=== PATIENT | male | born 1975 | race Caucasian/White ===

== ENCOUNTER 2018-08-30 08:40 | Observation (INO) | payer OTHER ==
[2018-08-29 10:22] LABS: BASOPHILS # (AUTO) 0.1 (0.0-0.1); BASOPHILS % 0.7 % (0.0-1.0); EOSINOPHILS # (AUTO) 0.2 (0.0-0.4); EOSINOPHILS % 2.1 % (0.0-6.0); HEMATOCRIT 49.6 % (38.2-49.6); HEMOGLOBIN 17.4 g/dL (14.0-18.0); LYMPHOCYTES # (AUTO) 3.4 (1.0-3.2); LYMPHOCYTES % 37.7 % (18.0-39.1); MEAN CORPUSCULAR HEMOGLOBIN 32.8 pg (28-32); MEAN CORPUSCULAR HGB CONC 35.1 g/dL (31-35); MEAN CORPUSCULAR VOLUME 93.6 fL (81-99); MONOCYTES # (AUTO) 0.7 (0.2-0.8); MONOCYTES % 7.7 % (4.4-11.3); NEUTROPHILS # (AUTO) 4.6 (2.1-6.9); NEUTROPHILS % 51.4 % (38.7-80.0); PLATELET COUNT 148 x10e3/uL (140-360); RED CELL DISTRIBUTION WIDTH 12.3 % (11.7-14.4)
[2018-08-29 10:58] LABS: ALANINE AMINOTRANSFERASE 41 IU/L (0-55); ALBUMIN/GLOBULIN RATIO 1.3 (0.8-2.0); ALKALINE PHOSPHATASE 65 IU/L (40-150); ANION GAP 13.5 mmol/L (8-16); BLOOD UREA NITROGEN 10 mg/dL (7-26); BUN/CREATININE RATIO 10 (6-25); CALCIUM 9.8 mg/dL (8.4-10.2); CARBON DIOXIDE 27 mmol/L (22-29); CHLORIDE 102 mmol/L (98-107); CHOL/HDL RATIO 6.1 (3.9-4.7); CHOLESTEROL 147 MD/DL (0-199); CREATININE, SERUM 1.04 mg/dL (0.72-1.25); EST GLOMERULAR FILTRATION RATE > 60 ML/MIN (60-); GLUCOSE 309 mg/dL (74-118); HDL CHOLESTEROL 24 MG/DL (40-60); POTASSIUM 4.5 mmol/L (3.5-5.1); SODIUM 138 mmol/L (136-145)
[2018-08-29 11:21] LABS: LDL CHOLESTEROL 81 MG/DL (60-130); TRIGLYCERIDES 212 MG/DL (0-149)
[2018-08-30] VITALS (12 sets, daily range): BP systolic 123–145; BP diastolic 65–91
[~2018-08-30] VITALS: Ht 177.8 cm; Wt 124.7 kg
--- NOTE | 2018-08-30 09:15 | NUR ---
Received pt Radiology holding area #5. Identifierx2 [facility] possible fix Dr Morales. PEERLA Resp shallow and regular 95%Ra.Bilateral femoral shaved and rt wrist. Bruce test positive.Pre procedural meds given with medication reconciliation done. Denies CP or SOB at this time PP x4 Pt/DP. Iv started left ac #20x1 no s/s infiltration flushed NS 1000ns at bedside.
[2018-08-30] MEDS ORDERED: SODIUM CHLORIDE 0.9% 1000ML 1,000 ML ONE (09:47)
[2018-08-30] MEDS ORDERED: ALPRAZOLAM 0.5 MG TAB ONE (09:47)
[2018-08-30] MEDS ORDERED: DIPHENHYDRAMINE HCL 25 MG CAP ONE (09:47)
[2018-08-30] MEDS ORDERED: ATORVASTATIN CA20 MG PO (10:21)
[2018-08-30] MEDS ORDERED: METOPROLOL SUCC50 MG PO (10:21)
[2018-08-30] MEDS ORDERED: RANOLAZINE 1000 MG (10:21)
[2018-08-30] MEDS ORDERED: CLOPIDOGREL75 MG PO (10:21)
[2018-08-30] MEDS ORDERED: ISOSORBIDE 60 MG (10:21)
[2018-08-30] MEDS ORDERED: LANSOPRAZOLE 15 MG (10:24)
[2018-08-30] MEDS ORDERED: MIDAZOLAM HCL 2 MG/2 ML VIAL ONE ×2 (11:00→11:57)
[2018-08-30] MEDS ORDERED: FENTANYL CITRATE/PF 100MCG/2 ML INJ ONE (11:00)
[2018-08-30] MEDS ORDERED: LIDOCAINE HCL 2% LOCAL 20 ML VIAL ONE (11:01)
[2018-08-30] MEDS ORDERED: IOPAMIDOL 370 MG/ML 200 ML INFUS..BTL INJ ONE ×2 (11:01→11:36)
[2018-08-30] MEDS ORDERED: HEPARIN SOD/SOD CHLORIDE 2,000 ML ONE (11:01)
[2018-08-30] MEDS ORDERED: VERAPAMIL HCL 2.5 MG/ML 2 ML VIAL ONE (11:01)
[2018-08-30] MEDS ORDERED: NITROGLYCERIN/D5W 200 MCG/ML 250 ML ONE (11:01)
[2018-08-30] MEDS ORDERED: ATROPINE SULFATE 0.1 MG/ML 10ML SYR ONE (11:43)
[2018-08-30] MEDS ORDERED: EPTIFIBATIDE 10 ML ONE (11:44)
[2018-08-30] MEDS ORDERED: TICAGRELOR 90 MG TABLET ONE (11:57)
[2018-08-30] MEDS ORDERED: ASPIRIN 325 MG TAB ONE (11:59)
--- NOTE | 2018-08-30 12:15 | NUR ---
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 Received report Fatuma RN labeling machine operator nurse. [facility] Dr Carmen vance CSi fix with rt radial approach Site with intact TR band Radial pulse adequate. Left ac iv 800cc at 75hr no s/s infiltration. Pt states has discomfort but drifts quickly to sleep Recieved orders for tele obs bed.Ox3 Family in waiting Abd soft and denies necessity to defecate or urinate PPx4 present. TR band w/o bleeding and intact titration due at 3pm
--- NOTE | 2018-08-30 14:00 | NUR ---
Titration held till 1500pm. 1500pm removed -3cc (12cc balloon)positive 9cc balance No bleeding radial pulse adequate 99%sat 1515 Tr band titration continued -3cc positive 6cc no bleed,pulse adequate 99% sat 1530 TR band titration continued -3cc positive 3cc no bleed,pulse adequate 99% sat 1600 TR band titration completed no bleeding, radial pulse adequate ,sats 99% dressing applied and reapplied rt tr band site splint for pt reminder, 1630 DC home per wc vs and trband and iv site stable. 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
--- NOTE | 2018-08-30 15:15 | Operative Report ---
DATE OF PROCEDURE: August 30, 2018 INDICATIONS: Coronary artery disease and abnormal stress test PROCEDURES PERFORMED: 1. Left heart catheterization, selective coronary angiography. 2. Atherectomy and drug eluting stent placement to the proximal right coronary artery. 3. Deployment of right wrist transradial band. COMPLICATIONS: None. RECOMMENDATIONS: Dual antiplatelet therapy for life. PROCEDURE: Access was obtained in the right radial artery. Using ultrasound guidance, a 5-Irish sheath was placed. Diagnostic coronary angiogram revealed patent left main, left anterior descending artery stent, 50% to 60% proximal stenosis, mid 50% stenosis in the region of the diagonal artery which was jailed within the existing stent. Circumflex had moderate 30% to 50% stenosis, proximal right coronary artery 80% stenosis. Stent in the right posterior descending artery was widely patent. LV end-diastolic pressure of 14. No gradient across the aortic valve on pullback. Decision was made to intervene on the right coronary artery. The patient received 12,000 units of intravenous heparin along with Integrilin bolus and oral Brilinta and aspirin for anticoagulation. The right coronary artery was cannulated using a 6-Irish JR4 Guidant catheter. A ViperWire was advanced across the lesion. Orbital atherectomy was performed and subsequently a 3-mm balloon was used to pre-dilate. A 4 x 20 mm Resolute Tung stent was deployed. Post dilated with a 5 mm balloon and normal atmospheres. Excellent end result, less than 10% distal stenosis. ALEJANDRINA III flow. No complications. Guidant sheath was removed and TR band applied. The patient discharged home the same day. Job#: [id number]
--- NOTE | 2018-08-30 16:30 | NUR ---
TR band titration is completed no s/s hematoma or oozing coban with sterile 2x2,tegederm and coban. Splint in place. Positive radial thrill.Iv is removed with 2x2 gauze and tegederm. NO s/s infilration. 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 Has copies of POC, To private care per wc no co stable vs and ekg Denies CP or SOB
== END 2018-08-30 16:30 | disposition home or self-care (01) ==
LOC: CATH LAB 08:40 → PACU V 12:46 → CATH LAB V 12:46 → UNDOADMOB 12:46
PROVIDERS: ADMIT Internal Medicine Interventional Cardiology; ATTEND Internal Medicine Interventional Cardiology
DX: I25.10 Atherosclerotic heart disease of native coronary artery without angina pectoris (principal); Z88.5 Allergy status to narcotic agent; I73.9 Peripheral vascular disease, unspecified; R94.39 Abnormal result of other cardiovascular function study; I10 Essential (primary) hypertension; Z01.812 Encounter for preprocedural laboratory examination
CPT/HCPCS: 36415; 80053; 80061; 85025; 92933; 93458; C1725; C1874; G0378; J1327; J2001; J2250; J7030; Q9967; C1724; C1887

== ENCOUNTER 2019-03-13 21:41 | Observation (INO) | payer OTHER ==
[~2019-03-13] VITALS: Ht 177.8 cm; Wt 120.4 kg
[~2019-03-13 21:41] MED LIST: ATORVASTATIN CA20 MG PO; CLOPIDOGREL75 MG PO; ISOSORBIDE 60 MG PO; LANSOPRAZOLE 15 MG; METOPROLOL SUCC50 MG PO; RANOLAZINE 1000 MG PO
--- OUTSIDE RECORDS SUMMARY | 2019-03-13 21:44 | XMS REPORT | Continuity of Care Document ---
Author Author [employer] Address Unknown Phone Unavailable Care Team Providers Care [employer] Pilot Name Role Phone [employer] Unavailable Unavailable Problems Problem Status Onset Date Classification Date Reported Comments Source Mild persistent asthmatic bronchitis without complication Active Diagnosis 09/01/2017 [facility] Esophageal reflux Active Problem 09/29/2017 [facility] Hospital discharge follow-up Active Diagnosis 09/01/2017 [facility] Pleurisy Active Diagnosis 09/01/2017 [facility] History of coronary artery stent placement Active Problem 09/29/2017 [facility] Hyperlipidemia, unspecified hyperlipidemia type Active Problem 09/29/2017 [facility] BMI 45.0-49.9, adult Active Problem 09/29/2017 [facility] Essential hypertension Active Problem 09/29/2017 [facility] Coronary atherosclerosis Active Problem 09/29/2017 [facility] Current smoker Active Problem 09/29/2017 [facility] Morbid obesity Active Problem 09/29/2017 [facility] Hematoma Active Diagnosis 09/21/2017 [facility] Hyperglycemia Active Problem 09/29/2017 [facility] Abnormal CXR Active Diagnosis 09/16/2017 [facility] Rib pain on left side Active Diagnosis 09/21/2017 [facility] Chest wall pain Active Diagnosis 09/21/2017 [facility] Acute gastritis without hemorrhage, unspecified gastritis type Active Diagnosis 09/16/2017 [facility] Bronchitis Active Diagnosis 08/19/2017 [facility] Other and unspecified hyperlipidemia Active Diagnosis 08/19/2017 [facility] Elevated glucose Active Diagnosis 09/02/2017 [facility] Encounter to discuss test results Active Diagnosis 09/21/2017 [facility] GERD Active Problem 11/24/2013 [facility] Hyperlipidemia Active Problem 11/24/2013 [facility] Hypertension Active Problem 11/24/2013 [facility] CAD Active Problem 11/24/2013 [facility] Nicotine abuse Active Diagnosis 11/24/2013 [facility] Morbid obesity Active Problem 11/24/2013 [facility] History of heart artery stent Active Problem 11/24/2013 [facility] Tendinitis of right elbow Active Diagnosis 10/21/2013 [facility] Acute bacterial sinusitis Active Diagnosis 11/24/2013 [facility] Routine general medical examination at a health care facility Active Diagnosis 10/21/2016 [facility] Medications Medication Details Route Status Patient Instructions Ordering Provider Order Date Source Ultram 1 tablet as needed Orally Active 50 mg Orally every 6 hrs Ghebranious 09/08/2017 [facility] Carafate 1 tablet on an empty stomach Orally Active 1 GM Orally four times a day (qid) as needed (prn) Ghebranious 09/08/2017 [facility] Albuterol Sulfate 3 ml Inhalation Active (2.5 MG/3ML) 0.083% Inhalation Three times a day PRN Ghebranious 08/30/2017 [facility] PredniSONE 1 tablet Orally Active 10 mg Orally Once a day Talha 08/30/2017 [facility] Naproxen 1 tablet as needed Orally Active 500 mg Orally twice a day Ghebranious 08/30/2017 [facility] ProAir HFA 2 puffs as needed Inhalation Active 108 (90 Base) MCG/ACT Inhalation every 4 hrs Ghebranious 08/17/2017 [facility] Tessalon Perles 1 capsule as needed Orally Active 100 mg Orally Three times a day [place] 08/17/2017 [facility] Ceftin 1 tablet Orally Active 250 MG Orally Twice a day [place] 08/17/2017 [facility] Levaquin 1 tablet Orally Active 500 mg Orally Once a day [place] 11/08/2013 [facility] Lipitor 1 tablet Orally Active 40 mg Orally Once a day [place] 11/03/2013 [facility] Flonase 2 spray in each nostril Nasally Active 50 MCG/ACT Nasally Once a day [facility] 10/26/2013 [facility] Augmentin 1 tablet Orally Active 500-125 MG Orally Twice a day [place] 10/26/2013 [facility] Flonase 2 spray in each nostril Nasally Active 50 MCG/ACT Nasally Once a day [place] 10/26/2013 [facility] Naproxen 1 tablet as needed Orally Active 500 mg Orally every 12 hrs [place] 10/19/2013 [facility] Aspir-81 1 tablet Orally Active 81 MG Orally Once a day [place] 10/19/2013 [facility] Pravastatin Sodium 1 tablet Orally Active 40 MG Orally Once a day [facility] Ranexa 1 tablet Orally Active 1000 MG Orally Twice a day [facility] Naproxen TAKE 1 TABLET EVERY 12 HOURS NEEDED. NA Active 500 MG [facility] Clopidogrel Bisulfate 1 tablet Orally Active 75 MG Orally Once a day [facility] Isosorbide Dinitrate 1 tablet Orally Active 30 mg Orally twice a day (bid) Talha [facility] Atorvastatin Calcium 1 tablet Orally Active 40 MG Orally Once a day [facility] Aspir-81 1 tablet Orally Active 81 MG Orally Once a day [facility] Amlodipine Besylate 1 tablet Orally Active 5 MG Orally Once a day [facility] Furosemide 1 tablet Orally Active 40 MG Orally Once a day [facility] Metoprolol Succinate not defined Orally Active 50 MG Orally [facility] Lisinopril 1 tablet Orally Active 20 MG Orally Once a day [facility] Prevacid 1 capsule before a meal Orally Active 15 MG Orally Once a day [facility] Isosorbide Dinitrate 1 tablet Orally Active 30 mg Orally twice a day (bid) [facility] Pravastatin Sodium 1 tablet Orally Active 40 MG Orally [facility] a day [facility] Bystolic 1 tablet Orally Active 10 mg Orally Once a day [facility] Isosorbide Mononitrate 1 tablet Orally Active 60 MG Orally Once a day [facility] Prevacid 1 capsule before a meal Orally Active 30 MG Orally Once a day [facility] Furosemide 1 tablet Orally Active 40 MG Orally Once a day [facility] Clopidogrel Bisulfate 1 tablet Orally Active 75 MG Orally Once a day [facility] Aspir-81 1 tablet Orally Active 81 MG Orally Once a day [facility] Naproxen TAKE 1 TABLET EVERY 12 HOURS NEEDED. NA Active 500 MG [facility] Isosorbide Mononitrate 1 tablet Orally Active 60 MG Orally Once a day [facility] Lisinopril 1 tablet Orally Active 20 MG Orally Once a day [facility] Isosorbide Dinitrate 1 tablet Orally Active 30 MG Orally Once a day [facility] Atorvastatin Calcium 1 tablet Orally Active 40 MG Orally Once a day [facility] Amlodipine Besylate 1 tablet Orally Active 5 MG Orally Once a day [facility] Prevacid 1 capsule before a meal Orally Active 15 MG Orally Once a day [facility] Metoprolol Succinate Unknown Orally Active 50 MG Orally [facility] Atorvastatin Calcium 20 Mg Tablet Bedtime for Cholesterol Active [facility] Clopidogrel Bisulfate (Clopidogrel) 75 Mg Tablet Daily for Blood Thinner Active [facility] Isosorbide 60MG Daily for Vasodilator Active [facility] Lansoprazole 15MG Active [facility] Metoprolol Succinate 50 Mg Tab.er.24h Daily for Bp Control Active [facility] [id number] Twice A Day for Prevent Cp Active [facility] Allergies, Adverse Reactions, Alerts Substance Category Reaction Severity Reaction type Status Date Reported Comments Source Codeine Sulfate Adverse Reaction nausea Adverse Reaction Active 09/15/2017 [facility] Codeine Unknown Allergy to Substance Active 08/29/2018 [facility] Immunizations No Data Provided for This Section Results Order Name Results Value Reference Range Date Interpretation Comments Source Blood leukocytes automated count (number/volume) 8.97 4.8 - 10.8 08/29/2018 [facility] Blood erythrocytes automated count (number/volume) 5.30 4.3 - 5.7 08/29/2018 [facility] Blood hemoglobin measurement (moles/volume) 17.4 14.0 - 18.0 08/29/2018 [facility] Automated blood hematocrit (volume fraction) 49.6 38.2 - 49.6 08/29/2018 [facility] Automated erythrocyte mean corpuscular volume 93.6 81 - 99 08/29/2018 [facility] Automated erythrocyte mean corpuscular hemoglobin (mass per erythrocyte) 32.8 28 - 32 08/29/2018 [facility] Automated erythrocyte mean corpuscular hemoglobin concentration measurement (mass/volume) 35.1 31 - 35 08/29/2018 [facility] RDW BldCo-Rto 12.3 11.7 - 14.4 08/29/2018 [facility] Automated blood platelet count (count/volume) 148 140 - 360 08/29/2018 [facility] Automated blood segmented neutrophil count as percentage of total leukocytes 51.4 38.7 - 80.0 08/29/2018 [facility] Automated blood lymphocyte count as percentage ot total leukocytes 37.7 18.0 - 39.1 08/29/2018 [facility] Automated blood monocyte count as percentage of total leukocytes 7.7 4.4 - 11.3 08/29/2018 [facility] Automated blood eosinophil count as percentage of total leukocytes 2.1 0.0 - 6.0 08/29/2018 [facility] Automated blood basophil count as percentage of total leukocytes 0.7 0.0 - 1.0 08/29/2018 [facility] IM GRANULOCYTES % 0.4 0.0 - 1.0 08/29/2018 [facility] Automated blood neutrophil count 4.6 2.1 - 6.9 08/29/2018 [facility] Blood lymphocytes count (number/volume) 3.4 1.0 - 3.2 08/29/2018 [facility] Blood monocytes automated count (number/volume) 0.7 0.2 - 0.8 08/29/2018 [facility] Automated blood eosinophil count 0.2 0.0 - 0.4 08/29/2018 [facility] Automated blood basophil count (count/volume) 0.1 0.0 - 0.1 08/29/2018 [facility] Absolute Immature Granulocyte (auto 0.04 0 - 0.1 08/29/2018 [facility] Serum or plasma sodium measurement (moles/volume) 138 136 - 145 08/29/2018 [facility] Serum or plasma potassium measurement (moles/volume) 4.5 3.5 - 5.1 08/29/2018 [facility] Serum or plasma chloride measurement (moles/volume) 102 98 - 107 08/29/2018 [facility] Serum or plasma carbon dioxide, total measurement (moles/volume) 27 22 - 29 08/29/2018 [facility] Serum or plasma anion gap 13.5 8 - 16 08/29/2018 [facility] Serum or plasma urea nitrogen measurement (mass/volume) 10 7 - 26 08/29/2018 [facility] Serum or plasma creatinine measurement (mass/volume) 1.04 0.72 - 1.25 08/29/2018 [facility] Serum or plasma urea nitrogen/creatinine mass ratio 10 6 - 25 08/29/2018 [facility] Estimated glomerular filtration rate (GFR) determination > 60 60 08/29/2018 [facility] Glucose measurement 309 74 - 118 08/29/2018 [facility] Serum or plasma calcium measurement (mass/volume) 9.8 8.4 - 10.2 08/29/2018 [facility] Serum or plasma total bilirubin measurement (mass/volume) 0.7 0.2 - 1.2 08/29/2018 [facility] Aspartate Amino Transf (AST/SGOT) 18 5 - 34 08/29/2018 [facility] Serum or plasma alanine aminotransferase measurement (enzymatic activity/volume) 41 0 - 55 08/29/2018 [facility] Serum or plasma protein measurement (mass/volume) 7.1 6.5 - 8.1 08/29/2018 [facility] Serum or plasma albumin measurement (mass/volume) 4.0 3.5 - 5.0 08/29/2018 [facility] Plasma globulin measurement (mass/volume) 3.1 2.3 - 3.5 08/29/2018 [facility] Serum or plasma albumin/globulin mass ratio 1.3 0.8 - 2.0 08/29/2018 [facility] Serum or plasma alkaline phosphatase measurement (enzymatic activity/volume) 65 40 - 150 08/29/2018 [facility] Serum or plasma triglyceride measurement (mass/volume) 212 0 - 149 08/29/2018 [facility] Serum or plasma cholesterol measurement (mass/volume) 147 0 - 199 08/29/2018 [facility] Serum or plasma cholesterol in LDL measurement (mass/volume) 81 60 - 130 08/29/2018 [facility] Serum or plasma cholesterol in HDL measurement (mass/volume) 24 40 - 60 08/29/2018 [facility] Serum or plasma total cholesterol/cholesterol in HDL mass ratio 6.1 3.9 - 4.7 08/29/2018 [facility] Pathology Reports No Data Provided for This Section Diagnostic Reports No Data Provided for This Section Consultation Notes No Data Provided for This Section Discharge Summaries No Data Provided for This Section History and Physicals No Data Provided for This Section Vital Signs Vital Sign Value Date Comments Source Weight 314 09/15/2017 [facility] Height 70 09/15/2017 [facility] Heart Rate 88 09/15/2017 [facility] Diastolic (mm Hg) 84 09/15/2017 [facility] Systolic (mm Hg) 136 09/15/2017 [facility] Weight 322 09/08/2017 [facility] Height 70 09/08/2017 [facility] Heart Rate 94 09/08/2017 [facility] Diastolic (mm Hg) 86 09/08/2017 [facility] Systolic (mm Hg) 132 09/08/2017 [facility] Diastolic (mm Hg) 84 08/30/2017 [facility] Systolic (mm Hg) 130 08/30/2017 [facility] Height 70 08/30/2017 [facility] Heart Rate 91 08/30/2017 [facility] Weight 327 08/17/2017 [facility] Height 70 08/17/2017 [facility] Temperature Oral (F) 98.4 F 08/17/2017 [facility] Heart Rate 85 08/17/2017 [facility] Diastolic (mm Hg) 86 08/17/2017 [facility] Systolic (mm Hg) 140 08/17/2017 [facility] Weight 311 10/16/2016 [facility] Height 70 10/16/2016 [facility] Heart Rate 80 10/16/2016 [facility] Diastolic (mm Hg) 96 10/16/2016 [facility] Systolic (mm Hg) 138 10/16/2016 [facility] Weight 303 10/26/2013 [facility] Height 70 10/26/2013 [facility] Temperature Oral (F) 98.0 F 10/26/2013 [facility] Diastolic (mm Hg) 90 10/26/2013 [facility] Systolic (mm Hg) 120 10/26/2013 [facility] Weight 303 10/26/2013 [facility] Height 70 10/26/2013 [facility] Temperature Oral (F) 98.0 F 10/26/2013 [facility] Diastolic (mm Hg) 90 10/26/2013 [facility] Systolic (mm Hg) 120 10/26/2013 [facility] Weight 299 10/19/2013 [facility] Height 70 10/19/2013 [facility] Diastolic (mm Hg) 82 10/19/2013 [facility] Systolic (mm Hg) 128 10/19/2013 [facility] Encounters Location Location Details Encounter Type Encounter Number Reason For Visit Attending Provider ADM Date DC Date Status Source [facility] consult [id number] 10/19/2013 10/19/2013 [facility] consult [id number] 10/19/2013 10/19/2013 [facility] consult [id number] 10/19/2013 10/19/2013 [facility] consult [id number] 10/19/2013 10/19/2013 [facility] consult [id number] 10/19/2013 10/19/2013 [facility] consult [id number] 10/19/2013 10/19/2013 [facility] sinus [id number] 10/26/2013 10/26/2013 [facility] sinus [id number] 10/26/2013 10/26/2013 [facility] test results [id number] 11/03/2013 11/03/2013 [facility] test results [id number] 11/03/2013 11/03/2013 [facility] test results [id number] 11/03/2013 11/03/2013 [facility] test results [id number] 11/03/2013 11/03/2013 [facility] test results [id number] 11/03/2013 11/03/2013 [facility] Unknown [id number] 11/08/2013 11/08/2013 [facility] Unknown [id number] 11/08/2013 11/08/2013 [facility] Unknown [id number] 11/08/2013 11/08/2013 [facility] Unknown [id number] 11/08/2013 11/08/2013 [facility] Unknown [id number] 11/16/2013 11/16/2013 [facility] Unknown [id number] 11/16/2013 11/16/2013 [facility] Unknown [id number] 11/16/2013 11/16/2013 [facility] Physical [id number] 10/16/2016 10/16/2016 [facility] Discharged Inpatient (obs) [id number] EMEKA GAMA MD 08/30/2018 08/30/2018 [facility] Procedures No Data Provided for This Section Assessment and Plan No Data Provided for This Section Plan of Care Plan of Care Date Source Discharge Date 08/30/18 4:30pm Disposition HOME, SELF-CARE Prescriptions See Medication Section 09/09/2018 [facility] Social History Social History Date Source Social History Problem Response Recorded Date/Time Onset Date Status Hx Substance Use Disorder No 08/29/2018 9:55am Not Applicable Not Applicable Hx Alcohol Use No 08/29/2018 9:55am Not Applicable Not Applicable Smoking Status Start Date Stop Date Current every day smoker 09/09/2018 [facility] Social History ElementQualifiersDate Reported Occupation: employed. [employer] Oct 16, 2016 Flu Vaccine: . 07/2016Oct 16, 2016 Fall Risk: . none in the past year Oct 16, 2016 Last Colonoscopy: . never Oct 16, 2016 Last Bone Density: . never Oct 16, 2016 Ethnicity . Status , Is cypriot your primary language? Yes Oct 16, 2016 children . 4 stepchildren Oct 16, 2016 Depression Screening: . negative Oct 16, 2016 Tobacco Use: . Are you a: current smoker, How many packs per day? 1 ppd, How many years have you smoked? 20-30 Oct 16, 2016 Use of recreational / street drugs? . Answer: No Oct 16, 2016 Marital Status: . Lauren Oct 16, 2016 Pneumoccocal Vaccine . Yes Oct 16, 2016 Do you drink alcohol? . Status: No Oct 16, 2016 10/16/2016 [facility] Family History Value Date Source QualifierDescriptionCommentDate Reported Maternal Grandmother Comment not available Oct 16, 2016 Paternal Grandmother Comment not available Oct 16, 2016 Siblings alive healthy Oct 16, 2016 Maternal Grandfather Comment not available Oct 16, 2016 Children Comment not available Oct 16, 2016 Father alive hypertension, heart disease Oct 16, 2016 Paternal Grandfather Comment not available Oct 16, 2016 Mother alive heart disease, hypertension Oct 16, 2016 Other: Comment not available Oct 16, 2016 10/21/2016 [facility] QualifierDescriptionCommentDate Reported Father alive hypertension, heart disease Oct 26, 2013 Mother alive heart disease, hypertension Oct 26, 2013 Siblings alive healthy Oct 26, 2013 11/24/2013 [facility] QualifierDescriptionCommentDate Reported Father alive hypertension, heart disease Oct 19, 2013 Mother alive heart disease, hypertension Oct 19, 2013 Siblings alive healthy Oct 19, 2013 10/21/2013 [facility] Advance Directives Order Name Results Value Date Source Advance Directives Advance Directives Directive Response Recorded Date/Time Does the patient have an advance directive? No 08/29/18 9:11am If yes, is advance directive on file with [facility]? No 08/29/18 9:11am If not on file with [facility] will patient provide a copy? No 08/29/18 9:11am Do you have a Directive to Physician? No 08/29/18 9:11am Do you have a Medical Power of Equipment Operator [employer]? No 08/29/18 9:11am Do you have an out of hospital Do Not Resuscitate Order? No 08/29/18 9:11am Do you have any special needs we should be aware of? No 08/29/18 9:12am Do you have a support person here with you today? Yes 08/29/18 9:12am Did patient receive Notice of Privacy Practices? No 08/29/18 9:12am Did patient receive patient rights and responsibilities? No 08/29/18 9:12am 09/09/2018 [facility] Functional Status No Data Provided for This Section
--- OUTSIDE RECORDS SUMMARY | 2019-03-13 21:44 | XMS REPORT ---
Author Author Emanuel Braden Organization eClinicalWorks Address Unknown Phone Unavailable Care Team Providers Care Firearms Instructor Name Role Phone Emanuel Braden CP Unavailable Allergies, Adverse Reactions, Alerts Substance Reaction Event Type Codeine Sulfate nausea Drug Allergy Problems Problem Type Condition Code Onset Dates Condition Status Assessment Essential hypertension I10 Active Problem Esophageal reflux K21.9 Active Assessment Bronchitis J40 Active Problem History of coronary artery stent placement Z95.5 Active Problem Hyperlipidemia, unspecified hyperlipidemia type E78.5 Active Problem BMI 45.0-49.9, adult Z68.42 Active Problem Essential hypertension I10 Active Problem Coronary atherosclerosis I25.10 Active Problem Current smoker F17.200 Active Problem Morbid obesity E66.01 Active Assessment History of coronary artery stent placement Z95.5 Active Assessment Coronary atherosclerosis I25.10 Active Assessment BMI 45.0-49.9, adult Z68.42 Active Assessment Esophageal reflux K21.9 Active Assessment Current smoker F17.200 Active Assessment Morbid obesity E66.01 Active Assessment Other and unspecified hyperlipidemia E78.5 Active Medications Medication Code System Code Instructions Start Date End Date Status Dosage Clopidogrel Bisulfate ND 53203320728 75 MG Orally Once a day Active 1 tablet Aspir-81 ND 21913589823 81 MG Orally Once a day Active 1 tablet Flonase ND 28742447809 50 MCG/ACT Nasally Once a day Oct 26, 2013 Active 2 spray in each nostril Tessalon Perles ND 87352231592 100 mg Orally Three times a day Aug 17, 2017 Aug 27, 2017 Active 1 capsule as needed Amlodipine Besylate ND 92071932418 5 MG Orally Once a day Active 1 tablet ProAir HFA [facility] 79065067489 108 (90 Base) MCG/ACT Inhalation every 4 hrs Aug 17, 2017 Active 2 puffs as needed Ranexa ND 09914502484 1000 MG Orally Twice a day Active 1 tablet Naproxen ND 00028876398 500 MG Active TAKE 1 TABLET EVERY 12 HOURS NEEDED. Ceftin [facility] 54597224629 250 MG Orally Twice a day Aug 17, 2017 Aug 27, 2017 Active 1 tablet Pravastatin Sodium [facility] 22107314248 40 MG Orally Once a day Active 1 tablet Atorvastatin Calcium [facility] 46941261319 40 MG Orally Once a day Active 1 tablet Isosorbide Dinitrate [facility] [address]-26 30 mg Orally twice a day (bid) Active 1 tablet Metoprolol Succinate ND 0 50 MG Orally Active not defined Prevacid [facility] 29709593227 15 MG Orally Once a day Active 1 capsule before a meal Furosemide [facility] 02389171511 40 MG Orally Once a day Active 1 tablet Lisinopril [facility] 35467060565 20 MG Orally Once a day Active 1 tablet Vital Signs Date/Time: Aug 17, 2017 BMI 46.91 Index Weight 327 lbs Height 70 in Temperature 98.4 F Cardiac Monitoring Heart Rate 85 /min Blood Pressure Diastolic 86 mm Hg Blood Pressure Systolic 140 mm Hg Results Name Result Date Reference Range Unit Abnormality Flag CBC ----Lymphs 1.8 [id number] ----NEUTROPHILS 5.7 [id number] ----MCHC 32.5 [id number] ----MCH 32.6 [id number] ----MCV 100.4 [id number] ----WBC 8.2 57106517 ----Platelets 152 [id number] ----RBC 4.72 [id number] ----Hemoglobin 15.4 [id number] ----Hematocrit 47.4 [id number] Summary Purpose eClinicalWorks Submission
--- OUTSIDE RECORDS SUMMARY | 2019-03-13 21:45 | XMS REPORT ---
Author Author Mariaelena Mccall Organization eClinicalWorks Address Unknown Phone Unavailable Care Team Providers Care Warehouse Supervisor Name Role Phone Mariaelena Mccall CP Unavailable Allergies No Known Allergies Problems Problem Type Condition Code Onset Dates Condition Status Problem Coronary atherosclerosis I25.10 Active Problem Esophageal reflux K21.9 Active Problem BMI 45.0-49.9, adult Z68.42 Active Problem History of coronary artery stent placement Z95.5 Active Problem Hyperglycemia R73.9 Active Problem Morbid obesity E66.01 Active Problem Essential hypertension I10 Active Problem Hyperlipidemia, unspecified hyperlipidemia type E78.5 Active Problem Current smoker F17.200 Active Medications No Known Medications Results No Known Results Summary Purpose eClinicalWorks Submission
--- OUTSIDE RECORDS SUMMARY | 2019-03-13 21:45 | XMS REPORT ---
Author Author Emanuel Braden Organization eClinicalWorks Address Unknown Phone Unavailable Care Team Providers Care Gumming Machine Operator Name Role Phone Emanuel Braden CP Unavailable Allergies No Known Allergies Problems Problem Type Condition Code Onset Dates Condition Status Problem Esophageal reflux K21.9 Active Assessment Elevated glucose R73.09 Active Problem History of coronary artery stent placement Z95.5 Active Problem Hyperlipidemia, unspecified hyperlipidemia type E78.5 Active Problem BMI 45.0-49.9, adult Z68.42 Active Problem Essential hypertension I10 Active Problem Coronary atherosclerosis I25.10 Active Problem Current smoker F17.200 Active Problem Morbid obesity E66.01 Active Medications No Known Medications Results No Known Results Summary Purpose eClinicalWorks Submission
--- OUTSIDE RECORDS SUMMARY | 2019-03-13 21:45 | XMS REPORT ---
Author Author Angelika Palencia [employer]Clinical[employer] Address Unknown Phone Unavailable Care Team Providers Care Collision Center Manager Name Role Phone Angelika Palencia Unavailable Allergies, Adverse Reactions, Alerts Substance Reaction Event Type Codeine Sulfate nausea Drug Allergy Problems Problem Type Condition Code Onset Dates Condition Status Assessment Mild persistent asthmatic bronchitis without complication J45.30 Active Problem Esophageal reflux K21.9 Active Assessment Hospital discharge follow-up Z09 Active Assessment Pleurisy R09.1 Active Problem History of coronary artery stent placement Z95.5 Active Problem Hyperlipidemia, unspecified hyperlipidemia type E78.5 Active Problem BMI 45.0-49.9, adult Z68.42 Active Problem Essential hypertension I10 Active Problem Coronary atherosclerosis I25.10 Active Problem Current smoker F17.200 Active Problem Morbid obesity E66.01 Active Medications Medication Code System Code Instructions Start Date End Date Status Dosage Albuterol Sulfate [facility] 87988344768 (2.5 MG/3ML) 0.083% Inhalation Three times a day PRN Aug 30, 2017 Active 3 ml Pravastatin Sodium [facility] 21532104771 40 MG Orally Once a day Active 1 tablet PredniSONE [facility] 15979831492 10 mg Orally Once a day Aug 30, 2017 Sep 06, 2017 Active 1 tablet Ranexa [facility] 07905225262 1000 MG Orally Twice a day Active 1 tablet Naproxen [facility] 86792921895 500 mg Orally twice a day Aug 30, 2017 Sep 13, 2017 Active 1 tablet as needed Naproxen [facility] 20265176054 500 MG Active TAKE 1 TABLET EVERY 12 HOURS NEEDED. Clopidogrel Bisulfate [facility] 63934501386 75 MG Orally Once a day Active 1 tablet Isosorbide Dinitrate [facility] [address]-82 30 mg Orally twice a day (bid) Active 1 tablet Atorvastatin Calcium [facility] 71553319622 40 MG Orally Once a day Active 1 tablet Aspir-81 [facility] 54134188840 81 MG Orally Once a day Active 1 tablet ProAir HFA [facility] 40121550799 108 (90 Base) MCG/ACT Inhalation every 4 hrs Aug 17, 2017 Active 2 puffs as needed Amlodipine Besylate [facility] 86144352204 5 MG Orally Once a day Active 1 tablet Furosemide [facility] 80143114309 40 MG Orally Once a day Active 1 tablet Metoprolol Succinate NDC 0 50 MG Orally Active not defined Flonase [facility] 65642327532 50 MCG/ACT Nasally Once a day Oct 26, 2013 Active 2 spray in each nostril Lisinopril [facility] 60184700369 20 MG Orally Once a day Active 1 tablet Prevacid [facility] 81898534607 15 MG Orally Once a day Active 1 capsule before a meal Vital Signs Date/Time: Aug 30, 2017 Blood Pressure Diastolic 84 mm Hg Blood Pressure Systolic 130 mm Hg Height 70 in Cardiac Monitoring Heart Rate 91 /min Results No Known Results Summary Purpose eClinicalWorks Submission
--- OUTSIDE RECORDS SUMMARY | 2019-03-13 21:45 | XMS REPORT ---
Author Author Mariaelena Mccall [facility] eClinicalWorks Address Unknown Phone Unavailable Care Team Providers Care Security Operations Center Operator Name Role Phone Mariaelena Mccall CP Unavailable Allergies, Adverse Reactions, Alerts Substance Reaction Event Type Codeine Sulfate nausea Drug Allergy Problems Problem Type Condition Code Onset Dates Condition Status Assessment Rib pain on left side R07.81 Active Problem Coronary atherosclerosis I25.10 Active Problem Esophageal reflux K21.9 Active Problem BMI 45.0-49.9, adult Z68.42 Active Problem History of coronary artery stent placement Z95.5 Active Problem Hyperglycemia R73.9 Active Problem Morbid obesity E66.01 Active Problem Essential hypertension I10 Active Problem Hyperlipidemia, unspecified hyperlipidemia type E78.5 Active Problem Current smoker F17.200 Active Assessment Encounter to discuss test results Z71.89 Active Assessment Hyperglycemia R73.9 Active Assessment Hematoma T14.8XXA Active Assessment Chest wall pain R07.89 Active Medications Medication Code System Code Instructions Start Date End Date Status Dosage Furosemide [facility] 74997825395 40 MG Orally Once a day Active 1 tablet Ultram [facility] 82762768333 50 mg Orally every 6 hrs Sep 08, 2017 Oct 08, 2017 Active 1 tablet as needed Metoprolol Succinate ND 0 50 MG Orally Active not defined Amlodipine Besylate ND 42225057103 5 MG Orally Once a day Active 1 tablet Albuterol Sulfate [facility] 08122782345 (2.5 MG/3ML) 0.083% Inhalation Three times a day PRN Aug 30, 2017 Active 3 ml Prevacid ND 03832202349 15 MG Orally Once a day Active 1 capsule before a meal Ranexa [facility] 61256521067 1000 MG Orally Twice a day Active 1 tablet Isosorbide Dinitrate ND 77703665339 30 mg Orally twice a day (bid) Active 1 tablet Clopidogrel Bisulfate ND 96243184934 75 MG Orally Once a day Active 1 tablet ProAir HFA [facility] 86886947262 108 (90 Base) MCG/ACT Inhalation every 4 hrs Aug 17, 2017 Active 2 puffs as needed Carafate [facility] 03776357653 1 GM Orally four times a day (qid) as needed (prn) Sep 08, 2017 Oct 08, 2017 Active 1 tablet on an empty stomach Atorvastatin Calcium [facility] 25310627350 40 MG Orally Once a day Active 1 tablet Vital Signs Date/Time: Sep 15, 2017 BMI 45.05 Index Weight 314 lbs Height 70 in Cardiac Monitoring Heart Rate 88 /min Blood Pressure Diastolic 84 mm Hg Blood Pressure Systolic 136 mm Hg Results Name Result Date Reference Range Unit Abnormality Flag Ribs Unil 2 View- Left Xray Summary Purpose eClinicalWorks Submission
--- OUTSIDE RECORDS SUMMARY | 2019-03-13 21:45 | XMS REPORT ---
Author Author Mariaelena Mccall [facility] eClinicalWorks Address Unknown Phone Unavailable Care Team Providers Care Community Organization Director Name Role Phone Mariaelena Mccall CP Unavailable Allergies, Adverse Reactions, Alerts Substance Reaction Event Type Codeine Sulfate nausea Drug Allergy Problems Problem Type Condition Code Onset Dates Condition Status Assessment Hematoma T14.8XXA Active Problem Coronary atherosclerosis I25.10 Active Problem Esophageal reflux K21.9 Active Problem BMI 45.0-49.9, adult Z68.42 Active Problem History of coronary artery stent placement Z95.5 Active Problem Hyperglycemia R73.9 Active Problem Morbid obesity E66.01 Active Problem Essential hypertension I10 Active Problem Hyperlipidemia, unspecified hyperlipidemia type E78.5 Active Problem Current smoker F17.200 Active Assessment Abnormal CXR R93.8 Active Assessment Rib pain on left side R07.81 Active Assessment Chest wall pain R07.89 Active Assessment Acute gastritis without hemorrhage, unspecified gastritis type K29.00 Active Medications Medication Code System Code Instructions Start Date End Date Status Dosage Ranexa [facility] 70986361684 1000 MG Orally Twice a day Active 1 tablet Furosemide ND 75729578808 40 MG Orally Once a day Active 1 tablet Lisinopril ND 12181127252 20 MG Orally Once a day Active 1 tablet Isosorbide Dinitrate ND 32341239305 30 mg Orally twice a day (bid) Active 1 tablet Naproxen ND 69078404877 500 mg Orally twice a day Aug 30, 2017 Sep 13, 2017 Inactive 1 tablet as needed Albuterol Sulfate ND 52957513702 (2.5 MG/3ML) 0.083% Inhalation Three times a day PRN Aug 30, 2017 Active 3 ml Prevacid [facility] 14379029968 15 MG Orally Once a day Active 1 capsule before a meal Naproxen ND 10374525612 500 MG Active TAKE 1 TABLET EVERY 12 HOURS NEEDED. Flonase [facility] 50136614446 50 MCG/ACT Nasally Once a day Oct 26, 2013 Active 2 spray in each nostril Metoprolol Succinate ND 0 50 MG Orally Active not defined Ultram [facility] 66681186625 50 mg Orally every 6 hrs Sep 08, 2017 Oct 08, 2017 Active 1 tablet as needed Aspir-81 [facility] 40588802219 81 MG Orally Once a day Inactive 1 tablet Carafate [facility] 75618192053 1 GM Orally four times a day (qid) as needed (prn) Sep 08, 2017 Oct 08, 2017 Active 1 tablet on an empty stomach ProAir HFA [facility] 38515581030 108 (90 Base) MCG/ACT Inhalation every 4 hrs Aug 17, 2017 Active 2 puffs as needed Pravastatin Sodium [facility] 40138992548 40 MG Orally Once a day Active 1 tablet Clopidogrel Bisulfate [facility] 66327569182 75 MG Orally Once a day Active 1 tablet Atorvastatin Calcium [facility] 06863550293 40 MG Orally Once a day Active 1 tablet Amlodipine Besylate [facility] 62639565153 5 MG Orally Once a day Active 1 tablet Vital Signs Date/Time: Sep 08, 2017 BMI 46.20 Index Weight 322 lbs Height 70 in Cardiac Monitoring Heart Rate 94 /min Blood Pressure Diastolic 86 mm Hg Blood Pressure Systolic 132 mm Hg Results No Known Results Summary Purpose eClinicalWorks Submission
--- OUTSIDE RECORDS SUMMARY | 2019-03-13 21:46 | XMS REPORT ---
Author Author Catina Rendon Organization eClinicalWorks Address Unknown Phone Unavailable Care Team Providers Care Global Position System Technician Name Role Phone Catina Rendon CP Unavailable Encounters Encounter Location Date consult [facility] Oct 19, 2013 test results [facility] Nov 03, 2013 Problems Problem Type Condition ICD-9 Code Onset Dates Condition Status Problem GERD (gastroesophageal reflux disease) 530.81 Active Problem Hyperlipidemia 272.4 Active Problem Hypertension 401.9 Active Problem CAD (coronary artery disease) 414.00 Active Problem Nicotine abuse 305.1 Active Problem Morbid obesity 278.01 Active Problem History of heart artery stent V45.82 Active Medications Medication Code System Code Instructions Start Date End Date Status Dosage Lipitor [facility] [address]-40 40 mg Orally Once a day Nov 03, 2013 Active 1 tablet Pravastatin Sodium [facility] [address]-49 40 MG Orally Once a day Inactive 1 tablet Social History Social History Element Qualifiers Date Reported children . none Oct 26, 2013 Tobacco Use: . Are you a: current smoker, How many packs per day? 1 ppd, How many years have you smoked? 20-30 Oct 26, 2013 Marital Status: . Oct 26, 2013 Do you drink alcohol? . Status: No Oct 26, 2013 Occupation: employed. [employer] Oct 26, 2013 Vital Signs Date/Time: Oct 26, 2013 Weight 303 lbs Height 70 inches Temperature 98.0 F Blood Pressure Diastolic 90 mm Hg Blood Pressure Systolic 120 mm Hg Summary Purpose eClinicalWorks Submission
--- OUTSIDE RECORDS SUMMARY | 2019-03-13 21:46 | XMS REPORT ---
Author Author Sujata Montilla [facility] eClinicalWorks Address Unknown Phone Unavailable Care Team Providers Care Employment Law Attorney Name Role Phone Sujata Montilla CP Unavailable Allergies, Adverse Reactions, Alerts Substance Reaction Event Type Codeine Sulfate nausea Drug Allergy Encounters Encounter Location Date Unknown [facility] November 16, 2013 sinus [facility] Oct 26, 2013 Physical [facility] Oct 16, 2016 consult [facility] Oct 19, 2013 test results [facility] Nov 03, 2013 Unknown [facility] Nov 08, 2013 Problems Problem Type Condition ICD-9 Code Onset Dates Condition Status Assessment Routine general medical examination at a health care facility Z00.00 Active Problem Morbid obesity E66.01 Active Problem Coronary atherosclerosis I25.10 Active Problem Current smoker F17.200 Active Problem BMI 40.0-44.9, adult Z68.41 Active Problem History of coronary artery stent placement Z95.5 Active Problem Esophageal reflux K21.9 Active Problem Other and unspecified hyperlipidemia E78.5 Active Problem Hyperlipidemia, unspecified hyperlipidemia type E78.5 Active Problem Essential hypertension I10 Active Assessment Current smoker F17.200 Active Assessment Essential hypertension I10 Active Assessment Hyperlipidemia, unspecified hyperlipidemia type E78.5 Active Assessment Coronary atherosclerosis I25.10 Active Assessment BMI 40.0-44.9, adult Z68.41 Active Assessment History of coronary artery stent placement Z95.5 Active Medications Medication Code System Code Instructions Start Date End Date Status Dosage Furosemide [facility] [address]-78 40 MG Orally Once a day Active 1 tablet Clopidogrel Bisulfate [facility] [address]-03 75 MG Orally Once a day Active 1 tablet Bystolic [facility] [address]-90 10 mg Orally Once a day Active 1 tablet Pravastatin Sodium [facility] [address]-96 40 MG Orally Once a day Active 1 tablet Aspir-81 [facility] [address]-79 81 MG Orally Once a day Active 1 tablet Naproxen [facility] [address]-77 500 MG Active TAKE 1 TABLET EVERY 12 HOURS NEEDED. Isosorbide Mononitrate [facility] [address]-93 60 MG Orally Once a day Active 1 tablet Lipitor [facility] [address]-29 40 mg Orally Once a day Nov 03, 2013 Active 1 tablet Lisinopril [facility] [address]-58 20 MG Orally Once a day Active 1 tablet Isosorbide Dinitrate [facility] [address]-68 30 MG Orally Once a day Active 1 tablet Atorvastatin Calcium [facility] [address]-84 40 MG Orally Once a day Active 1 tablet Amlodipine Besylate [facility] [address]-04 5 MG Orally Once a day Active 1 tablet Prevacid [facility] [address]-78 15 MG Orally Once a day Active 1 capsule before a meal Flonase [facility] [address]-21 50 MCG/ACT Nasally Once a day Oct 26, 2013 Active 2 spray in each nostril Metoprolol Succinate Unknown 0 50 MG Orally Active Unknown Social History Social History Element Qualifiers Date Reported Occupation: employed. [employer] [place] Oct 16, 2016 Flu Vaccine: . 07/2016Oct 16, 2016 Fall Risk: . none in the past year Oct 16, 2016 Last Colonoscopy: . never Oct 16, 2016 Last Bone Density: . never Oct 16, 2016 Ethnicity . Status , Is yi your primary language? Yes Oct 16, 2016 children . 4 stepchildren Oct 16, 2016 Depression Screening: . negative Oct 16, 2016 Tobacco Use: . Are you a: current smoker, How many packs per day? 1 ppd, How many years have you smoked? 20-Oct 16, 2016 Use of recreational / street drugs? . Answer: No Oct 16, 2016 Marital Status: . [place]ne Oct 16, 2016 Pneumoccocal Vaccine . Yes Oct 16, 2016 Do you drink alcohol? . Status: No Oct 16, 2016 Family history Qualifier Description Comment Date Reported Maternal Grandmother Comment not available Oct [...] Other: Comment not available Oct 16, 2016 Vital Signs Date/Time: Oct 16, 2016 Weight 311 lbs Height 70 in Cardiac Monitoring Heart Rate 80 /min Blood Pressure Diastolic 96 mm Hg Blood Pressure Systolic 138 mm Hg Results Chest 2 views- Xray Summary Purpose eClinicalWorks Submission
--- OUTSIDE RECORDS SUMMARY | 2019-03-13 21:46 | XMS REPORT ---
Author Author Catina Rendon [facility] eClinicalWorks Address Unknown Phone Unavailable Care Team Providers Care Structural Technician Name Role Phone aCtina Rendon Unavailable Allergies, Adverse Reactions, Alerts Substance Reaction Event Type Codeine Sulfate nausea Drug Allergy Encounters Encounter Location Date consult [facility] Oct 19, 2013 Problems Problem Type Condition ICD-9 Code Onset Dates Condition Status Assessment Hyperlipidemia 272.4 Active Assessment Hypertension 401.9 Active Assessment GERD (gastroesophageal reflux disease) 530.81 Active Problem GERD (gastroesophageal reflux disease) 530.81 Active Problem Hyperlipidemia 272.4 Active Problem Hypertension 401.9 Active Problem CAD (coronary artery disease) 414.00 Active Problem Nicotine abuse 305.1 Active Problem Morbid obesity 278.01 Active Problem History of heart artery stent V45.82 Active Assessment Tendinitis of right elbow 727.09 Active Assessment CAD (coronary artery disease) 414.00 Active Assessment Morbid obesity 278.01 Active Medications Medication Code System Code Instructions Start Date End Date Status Dosage Bystolic [facility] [address]-07 10 mg Orally Once a day Active 1 tablet Isosorbide Mononitrate [facility] [address]-28 60 MG Orally Once a day Active 1 tablet Prevacid [facility] [address]-57 30 MG Orally Once a day Active 1 capsule before a meal Naproxen [facility] [address]-87 500 mg Orally every 12 hrs Oct 19, 2013 December 18, 2013 Active 1 tablet as needed Aspir-81 [facility] [address]-60 81 MG Orally Once a day Oct 19, 2013 November 18, 2013 Active 1 tablet Pravastatin Sodium [facility] [address]-78 40 MG Orally Once a day Active 1 tablet Social History Social History Element Qualifiers Date Reported children . none Oct 19, 2013 Tobacco Use: . Are you a: current smoker, How many packs per day? 1 ppd, How many years have you smoked? 20-30 Oct 19, 2013 Marital Status: . Oct 19, 2013 Do you drink alcohol? . 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
--- OUTSIDE RECORDS SUMMARY | 2019-03-13 21:46 | XMS REPORT ---
Author Author [facility] Address Unknown Phone Unavailable Care Team Providers Care Branch Service Specialist Name Role Phone Unavailable Unavailable Problems This patient has no known problems. Allergies, Adverse Reactions, Alerts This patient has no known allergies or adverse reactions. Medications This patient has no known medications. Encounters Start Date/Time End Date/Time Encounter Type Admission Type Attending Clinicians Care Facility Care Department Encounter ID 2019-03-07 21:08:00 2019-03-07 21:08:00 Outpatient [id number]
--- OUTSIDE RECORDS SUMMARY | 2019-03-13 21:46 | XMS REPORT ---
Author Author Amena Bernard [facility] eClinicalWorks Address Unknown Phone Unavailable Care Team Providers Care Resawyer Name Role Phone Amena Bernard CP Unavailable Encounters Encounter Location Date consult [facility] Oct 19, 2013 test results [facility] Nov 03, 2013 Unknown [facility] Nov 08, 2013 [...] Instructions Start Date End Date Status Dosage Levaquin [facility] [address]-09 500 mg Orally Once a day Nov 08, 2013 November 15, 2013 Active 1 tablet Social History Social History Element Qualifiers Date Reported children . none Oct 26, 2013 Tobacco Use: . Are you a: current smoker, How many packs per day? 1 ppd, How many years have you smoked? 20-30 Oct 26, 2013 Marital Status: . Oct 26, 2013 Do you drink alcohol? . 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
--- OUTSIDE RECORDS SUMMARY | 2019-03-13 21:46 | XMS REPORT ---
Author Author Catina Rendon [facility] eClinicalWorks Address Unknown Phone Unavailable Care Team Providers Care Icer Hand Name Role Phone Catina Rendon CP Unavailable Encounters Encounter Location Date Unknown [facility] November 16, 2013 consult [facility] Oct 19, 2013 test results [facility] Nov 03, 2013 Unknown [facility] Nov 08, 2013 [...] Start Date End Date Status Dosage Lipitor [facility] [address]-30 40 mg Orally Once a day Nov 03, 2013 Active 1 tablet Social History Social History Element Qualifiers Date Reported children . none Oct 26, 2013 Tobacco Use: . Are you a: current smoker, How many packs per day? 1 ppd, How many years have you smoked? 20-30 Oct 26, 2013 Marital Status: . Oct 26, 2013 Do you drink alcohol? . Status: No Oct 26, 2013 Occupation: employed. [employer] Oct 26, 2013 Vital Signs Date/Time: Oct 26, 2013 Weight 303 lbs Height 70 inches Temperature 98.0 F Blood Pressure Diastolic 90 mm Hg Blood Pressure Systolic 120 mm Hg Summary Purpose eClinicalWorks Submission
--- OUTSIDE RECORDS SUMMARY | 2019-03-13 21:46 | XMS REPORT ---
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 Name Role Phone Chelsi Yeager CP Unavailable Allergies, Adverse Reactions, Alerts Substance Reaction Event Type Codeine Sulfate nausea Drug Allergy Encounters Encounter Location Date Unknown [facility] November 16, 2013 sinus [facility] Oct 26, 2013 consult [facility] Oct 19, 2013 test results [facility] Nov 03, 2013 Unknown [facility] Nov 08, 2013 Problems Problem Type Condition ICD-9 Code Onset Dates Condition Status Assessment Acute bacterial sinusitis 461.9 Active Assessment Nicotine abuse 305.1 Active Problem GERD (gastroesophageal reflux disease) 530.81 Active Problem Hyperlipidemia 272.4 Active Problem Hypertension 401.9 Active Problem CAD (coronary artery disease) 414.00 Active Problem Nicotine abuse 305.1 Active Problem Morbid obesity 278.01 Active Problem History of heart artery stent V45.82 Active Medications Medication Code System Code Instructions Start Date End Date Status Dosage Naproxen [facility] [address]-60 500 mg Orally every 12 hrs Oct 19, 2013 December 18, 2013 Active 1 tablet as needed Isosorbide Mononitrate [facility] [address]-73 60 MG Orally Once a day Active 1 tablet Prevacid [facility] [address]-20 30 MG Orally Once a day Active 1 capsule before a meal Pravastatin Sodium [facility] [address]-00 40 MG Orally Once a day Active 1 tablet Augmentin [facility] [address]-94 500-125 MG Orally Twice a day Oct 26, 2013 Nov 05, 2013 Active 1 tablet Flonase [facility] [address]-73 50 MCG/ACT Nasally Once a day Oct 26, 2013 Active 2 spray in each nostril Bystolic [facility] [address]-01 10 mg Orally Once a day Active 1 tablet Aspir-81 [facility] [address]-52 81 MG Orally Once a day Oct 19, 2013 November 18, 2013 Active 1 tablet Social History Social History Element Qualifiers Date Reported children . none Oct 26, 2013 Tobacco Use: . Are you a: current smoker, How many packs per day? 1 ppd, How many years have you smoked? 20-30 Oct 26, 2013 Marital Status: . Oct 26, 2013 Do you drink alcohol? . Status: No Oct 26, 2013 Occupation: employed. [employer] Oct 26, 2013 Family history Qualifier Description Comment Date Reported Father alive hypertension, heart disease Oct 26, 2013 Mother alive heart disease, hypertension Oct 26, 2013 Siblings alive healthy Oct 26, 2013 Vital Signs Date/Time: Oct 26, 2013 Weight 303 lbs Height 70 inches Temperature 98.0 F Blood Pressure Diastolic 90 mm Hg Blood Pressure Systolic 120 mm Hg Results DECADRON 1MGx4 DEPO MEDROL 40MG X3 UNITS Summary Purpose eClinicalWorks Submission
[2019-03-13] MEDS ORDERED: MORPHINE SULFATE INJ 4 MG/ML INJ 1ML IV PRN (22:15)
[2019-03-13 22:50] LABS: BASOPHILS # (AUTO) 0.1 (0.0-0.1); BASOPHILS % 0.6 % (0.0-1.0); EOSINOPHILS # (AUTO) 0.2 (0.0-0.4); EOSINOPHILS % 1.8 % (0.0-6.0); LYMPHOCYTES # (AUTO) 3.8 (1.0-3.2); LYMPHOCYTES % 35.3 % (18.0-39.1); MEAN CORPUSCULAR HEMOGLOBIN 32.1 pg (28-32); MEAN CORPUSCULAR VOLUME 94.2 fL (81-99); MONOCYTES # (AUTO) 0.9 (0.2-0.8); MONOCYTES % 8.4 % (4.4-11.3); NEUTROPHILS # (AUTO) 5.8 (2.1-6.9); NEUTROPHILS % 53.4 % (38.7-80.0); PLATELET COUNT 164 x10e3/uL (140-360); RED BLOOD COUNT 4.99 x10e6/uL (4.3-5.7)
--- NOTE | 2019-03-13 23:03 | Diagnostic Imaging Report ---
EXAMINATION: CHEST 2 VIEWS INDICATION: Central chest pain ^chest pain ^[id number] ^2225 COMPARISON: None FINDINGS: PA and lateral views TUBES and LINES: None. LUNGS: Lungs are well inflated. There is no evidence of pneumonia or pulmonary edema. PLEURA: Lateral left pleural thickening is present in the mid chest. No pleural effusion or pneumothorax HEART AND MEDIASTINUM: The cardiomediastinal silhouette is unremarkable. A coronary artery calcification or stent is present. BONES AND SOFT TISSUES: Undulating contours of the left seventh and possibly eighth ribs suggestive of fracture. Soft tissues are unremarkable. UPPER ABDOMEN: No free air under the diaphragm. IMPRESSION: Suspected fractures of the left seventh and possibly eighth ribs with associated pleural thickening. No pneumothorax. No acute pulmonary process. Signed by: Dr. Arnav Quintana MD on 03/13/2019 11:00 PM
[2019-03-13 23:32] LABS: ALANINE AMINOTRANSFERASE 29 IU/L (0-55); ALBUMIN/GLOBULIN RATIO 1.4 (0.8-2.0); ALKALINE PHOSPHATASE 56 IU/L (40-150); ANION GAP 16.1 mmol/L (8-16); BLOOD UREA NITROGEN 18 mg/dL (7-26); BUN/CREATININE RATIO 18 (6-25); CALCIUM 9.8 mg/dL (8.4-10.2); CARBON DIOXIDE 26 mmol/L (22-29); CHLORIDE 103 mmol/L (98-107); CREATININE, SERUM 1.01 mg/dL (0.72-1.25); EST GLOMERULAR FILTRATION RATE > 60 ML/MIN (60-); GLUCOSE 89 mg/dL (74-118); POTASSIUM 4.1 mmol/L (3.5-5.1); SODIUM 141 mmol/L (136-145)
[2019-03-14] VITALS (18 sets, daily range): BP systolic 121–178; BP diastolic 58–91
[2019-03-14] MEDS ORDERED: NITROGLYCERIN 0.4 MG SUBL SL PRN
--- OUTSIDE RECORDS SUMMARY | 2019-03-14 01:25 | XMS REPORT | Continuity of Care Document ---
Author Author [place] Address Unknown Phone Unavailable Care Team Providers Care Healthcare Or Medical Name Role Phone [employer] Unavailable Unavailable Problems Problem Status [...] Tendinitis of right elbow Active Diagnosis 10/21/2013 [facility] Acute bacterial [...] Active 40 mg Orally Once a day [place] 11/03/2013 [facility] Flonase 2 spray in each nostril Nasally Active 50 MCG/ACT Nasally Once a day [facility] 10/26/2013 [facility] Augmentin 1 tablet Orally Active 500-125 MG Orally Twice a day [place] 10/26/2013 [facility] Flonase 2 spray in each nostril Nasally Active 50 MCG/ACT Nasally Once a day [place] 10/26/2013 [facility] Naproxen 1 tablet as needed Orally Active 500 mg Orally every 12 hrs [place] 10/19/2013 [facility] Aspir-81 1 tablet Orally Active 81 MG Orally Once a day [place] 10/19/2013 [facility] Pravastatin Sodium 1 tablet Orally Active 40 MG Orally Once a day [facility] Ranexa 1 tablet Orally Active 1000 MG Orally Twice a day [facility] Naproxen TAKE 1 TABLET EVERY 12 HOURS NEEDED. NA Active 500 MG [facility] Clopidogrel Bisulfate 1 tablet Orally Active 75 MG Orally Once a day [facility] Isosorbide Dinitrate 1 tablet Orally Active 30 mg Orally twice a day (bid) [facility] Atorvastatin Calcium 1 tablet Orally Active 40 MG Orally Once a day [facility] Aspir-81 1 tablet Orally Active 81 MG Orally Once a day [facility] Amlodipine Besylate 1 tablet Orally Active 5 MG Orally Once a day [facility] Furosemide 1 tablet Orally Active 40 MG Orally Once a day [facility] Metoprolol Succinate not defined Orally Active 50 MG Orally [facility] Lisinopril 1 tablet Orally Active 20 MG Orally Once a day [facility] Prevacid 1 capsule before a meal Orally Active 15 MG Orally Once a day [facility] Isosorbide Dinitrate 1 tablet Orally Active 30 mg Orally twice a day (bid) [facility] Pravastatin Sodium 1 tablet Orally Active 40 MG [facility] Bystolic 1 tablet Orally Active 10 mg Orally Once a day [facility] Isosorbide Mononitrate 1 tablet Orally Active 60 MG Orally Once a day [facility] Prevacid 1 capsule before a meal Orally Active 30 MG Orally Once a day [facility] Furosemide 1 tablet Orally Active 40 MG Orally Once a day [facility] Clopidogrel Bisulfate 1 tablet Orally Active 75 MG Orally Once a day [facility] Aspir-81 1 tablet Orally Active 81 MG Orally Once a day [facility] Naproxen TAKE 1 TABLET EVERY 12 HOURS NEEDED. NA Active 500 MG [facility] Isosorbide Mononitrate 1 tablet Orally Active 60 MG Orally Once a day [facility] Lisinopril 1 tablet Orally Active 20 MG Orally Once a day [facility] Isosorbide Dinitrate 1 tablet Orally Active 30 MG Orally Once a day [facility] Atorvastatin Calcium 1 tablet Orally Active 40 MG Orally Once a day [facility] Amlodipine Besylate 1 tablet Orally Active 5 MG Orally Once a day [facility] Prevacid 1 capsule before a meal Orally Active 15 MG Orally Once a day [facility] Metoprolol Succinate Unknown Orally Active 50 MG Orally [facility] Atorvastatin Calcium 20 Mg Tablet Bedtime for Cholesterol Active [facility] Clopidogrel Bisulfate (Clopidogrel) 75 Mg Tablet Daily for Blood Thinner Active [facility] Isosorbide 60MG Daily for Vasodilator Active [facility] Lansoprazole 15MG Active [facility] Metoprolol Succinate 50 Mg Tab.er.24h Daily for Bp Control Active [facility] [id number] Twice A Day for Prevent Cp Active [facility] Allergies, Adverse Reactions, Alerts Substance Category Reaction Severity Reaction type Status Date Reported Comments Source Codeine Sulfate Adverse Reaction nausea Adverse Reaction Active 09/15/2017 [facility] Codeine Unknown Allergy to Substance Active 08/29/2018 [facility] Immunizations No Data Provided for This Section Results Order Name Results Value Reference Range Date Interpretation Comments Source Blood leukocytes automated count (number/volume) 8.97 4.8 - 10.8 08/29/2018 [facility] Blood erythrocytes automated count (number/volume) 5.30 4.3 - 5.7 08/29/2018 [facility] Blood hemoglobin measurement (moles/volume) 17.4 14.0 - 18.0 08/29/2018 [facility] Automated blood hematocrit (volume fraction) 49.6 38.2 - 49.6 08/29/2018 [facility] Automated erythrocyte mean corpuscular volume 93.6 81 - 99 08/29/2018 [facility] Automated erythrocyte mean corpuscular hemoglobin (mass per erythrocyte) 32.8 28 - 32 08/29/2018 [facility] Automated erythrocyte mean corpuscular hemoglobin concentration measurement (mass/volume) 35.1 31 - 35 08/29/2018 [facility] RDW BldCo-Rto 12.3 11.7 - 14.4 08/29/2018 [facility] Automated blood platelet count (count/volume) 148 140 - 360 08/29/2018 [facility] Automated blood segmented neutrophil count as percentage of total leukocytes 51.4 38.7 - 80.0 08/29/2018 [facility] Automated blood lymphocyte count as percentage ot total leukocytes 37.7 18.0 - 39.1 08/29/2018 [facility] Automated blood monocyte count as percentage of total leukocytes 7.7 4.4 - 11.3 08/29/2018 [facility] Automated blood eosinophil count as percentage of total leukocytes 2.1 0.0 - 6.0 08/29/2018 [facility] Automated blood basophil count as percentage of total leukocytes 0.7 0.0 - 1.0 08/29/2018 [facility] IM GRANULOCYTES % 0.4 0.0 - 1.0 08/29/2018 [facility] Automated blood neutrophil count 4.6 2.1 - 6.9 08/29/2018 [facility] Blood lymphocytes count (number/volume) 3.4 1.0 - 3.2 08/29/2018 [facility] Blood monocytes automated count (number/volume) 0.7 0.2 - 0.8 08/29/2018 [facility] Automated blood eosinophil count 0.2 0.0 - 0.4 08/29/2018 [facility] Automated blood basophil count (count/volume) 0.1 0.0 - 0.1 08/29/2018 [facility] Absolute Immature Granulocyte (auto 0.04 0 - 0.1 08/29/2018 [facility] Serum or plasma sodium measurement (moles/volume) 138 136 - 145 08/29/2018 [facility] Serum or plasma potassium measurement (moles/volume) 4.5 3.5 - 5.1 08/29/2018 [facility] Serum or plasma chloride measurement (moles/volume) 102 98 - 107 08/29/2018 [facility] Serum or plasma carbon dioxide, total measurement (moles/volume) 27 22 - 29 08/29/2018 [facility] Serum or plasma anion gap 13.5 8 - 16 08/29/2018 [facility] Serum or plasma urea nitrogen measurement (mass/volume) 10 7 - 26 08/29/2018 [facility] Serum or plasma creatinine measurement (mass/volume) 1.04 0.72 - 1.25 08/29/2018 [facility] Serum or plasma urea nitrogen/creatinine mass ratio 10 6 - 25 08/29/2018 [facility] Estimated glomerular filtration rate (GFR) determination > 60 60 08/29/2018 [facility] Glucose measurement 309 74 - 118 08/29/2018 [facility] Serum or plasma calcium measurement (mass/volume) 9.8 8.4 - 10.2 08/29/2018 [facility] Serum or plasma total bilirubin measurement (mass/volume) 0.7 0.2 - 1.2 08/29/2018 [facility] Aspartate Amino Transf (AST/SGOT) 18 5 - 34 08/29/2018 [facility] Serum or plasma alanine aminotransferase measurement (enzymatic activity/volume) 41 0 - 55 08/29/2018 [facility] Serum or plasma protein measurement (mass/volume) 7.1 6.5 - 8.1 08/29/2018 [facility] Serum or plasma albumin measurement (mass/volume) 4.0 3.5 - 5.0 08/29/2018 [facility] Plasma globulin measurement (mass/volume) 3.1 2.3 - 3.5 08/29/2018 [facility] Serum or plasma albumin/globulin mass ratio 1.3 0.8 - 2.0 08/29/2018 [facility] Serum or plasma alkaline phosphatase measurement (enzymatic activity/volume) 65 40 - 150 08/29/2018 [facility] Serum or plasma triglyceride measurement (mass/volume) 212 0 - 149 08/29/2018 [facility] Serum or plasma cholesterol measurement (mass/volume) 147 0 - 199 08/29/2018 [facility] Serum or plasma cholesterol in LDL measurement (mass/volume) 81 60 - 130 08/29/2018 [facility] Serum or plasma cholesterol in HDL measurement (mass/volume) 24 40 - 60 08/29/2018 [facility] Serum or plasma total cholesterol/cholesterol in HDL mass ratio 6.1 3.9 - 4.7 08/29/2018 [facility] Pathology Reports No Data Provided for This Section Diagnostic Reports No Data Provided for This Section Consultation Notes No Data Provided for This Section Discharge Summaries No Data Provided for This Section History and Physicals No Data Provided for This Section Vital Signs Vital Sign Value Date Comments Source Weight 314 09/15/2017 [facility] Height 70 09/15/2017 [facility] Heart Rate 88 09/15/2017 [facility] Diastolic (mm [...] Med [facility] Systolic (mm Hg) 120 10/26/2013 [facility] Weight 299 10/19/2013 [facility] Height 70 10/19/2013 [facility] Diastolic (mm Hg) 82 10/19/2013 [facility] Systolic (mm Hg) 128 10/19/2013 [facility] Encounters Location Location Details Encounter Type Encounter Number Reason For Visit Attending Provider ADM Date DC Date Status Source [facility] consult [id number] 10/19/2013 10/19/2013 [facility] consult [id number] 10/19/2013 10/19/2013 [facility] consult [id number] 10/19/2013 10/19/2013 [facility] consult [id number] 10/19/2013 10/19/2013 [facility] consult [id number] 10/19/2013 10/19/2013 [facility] consult [id number] 10/19/2013 10/19/2013 [facility] sinus [id number] 10/26/2013 10/26/2013 [facility] sinus [id number] 10/26/2013 10/26/2013 [facility] test results [id number] 11/03/2013 11/03/2013 [facility] test results [id number] 11/03/2013 11/03/2013 [facility] test results [id number] 11/03/2013 11/03/2013 [facility] test results [id number] 11/03/2013 11/03/2013 [facility] test results [id number] 11/03/2013 11/03/2013 [facility] Unknown [id number] 11/08/2013 11/08/2013 [facility] Unknown [id number] 11/08/2013 11/08/2013 [facility] Unknown [id number] 11/08/2013 11/08/2013 [facility] Unknown [id number] 11/08/2013 11/08/2013 [facility] Unknown [id number] 11/16/2013 11/16/2013 [facility] Unknown [id number] 11/16/2013 11/16/2013 [facility] Unknown [id number] 11/16/2013 11/16/2013 [facility] Physical [id number] 10/16/2016 10/16/2016 [facility] Discharged Inpatient (obs) [id number] EMEKA GAMA MD 08/30/2018 08/30/2018 [facility] Procedures No Data Provided for This Section Assessment and Plan No Data Provided for This Section Plan of Care Plan of Care Date Source Discharge Date 08/30/18 4:30pm Disposition HOME, SELF-CARE Prescriptions See Medication Section 09/09/2018 [facility] Social History Social History Date Source Social History Problem Response Recorded Date/Time Onset Date Status Hx Substance Use Disorder No 08/29/2018 9:55am Not Applicable Not Applicable Hx Alcohol Use No 08/29/2018 9:55am Not Applicable Not Applicable Smoking Status Start Date Stop Date Current every day smoker 09/09/2018 [facility] Social History ElementQualifiersDate Reported Occupation: employed. [employer] Oct 16, 2016 Flu Vaccine: . 07/2016Oct 16, 2016 Fall Risk: . none in the past year Oct 16, 2016 Last Colonoscopy: . never Oct 16, 2016 Last Bone Density: . never Oct 16, 2016 Ethnicity . Status , Is montenegrin your primary language? Yes Oct 16, 2016 [...] 08/29/18 9:11am If not on file with [facility] will patient provide a copy? No 08/29/18 9:11am Do you have a Directive to Physician? No 08/29/18 9:11am Do you have a Medical Power of Ruching Machine Operator? No 08/29/18 9:11am Do you have an [...] rights and responsibilities? No 08/29/18 9:12am 09/09/2018 [facility] Functional Status No Data Provided for This Section
--- NOTE | 2019-03-14 01:49 | NUR ---
Patient arrived via wheelchair from ER. Oriented to room, environment and call light. Instructed to call for onset of pain or SOB. Call light within reach. Will continue to monitor.
[2019-03-14] MEDS ORDERED: ASPIRIN325 MG PO (02:19)
[2019-03-14] MEDS ORDERED: PREVACID15 MG PO (02:19)
[2019-03-14] MEDS ORDERED: METFORMIN HCL500 M2 PO (02:19)
[2019-03-14] MEDS ORDERED: WELLBUTRIN SR150 MG PO (02:19)
[2019-03-14] MEDS ORDERED: TRESIBA SUBD (02:19)
[2019-03-14] MEDS ORDERED: NOVOLOG100 UNIT/1 SUBD (02:19)
[2019-03-14] MEDS ORDERED: LASIX40 MG PO (02:19)
[2019-03-14 05:46] LABS: CHOL/HDL RATIO 5.3 (3.9-4.7)
--- NOTE | 2019-03-14 06:00 | NUR ---
Patient in bed resting. No issues or concerns. Call light within reach. Will continue to monitor.
--- NOTE | 2019-03-14 06:19 | NUR ---
Left message with Dr Morales for new consult. Awaiting call back.
[2019-03-14 07:20] LABS: CREATINE KINASE 44 IU/L (30-200)
[2019-03-14] MEDS ORDERED: HEPARIN SOD/SOD CHLORIDE 2,000 ML ONE (09:06)
[2019-03-14] MEDS ORDERED: MIDAZOLAM HCL 2 MG/2 ML VIAL ONE (09:06)
[2019-03-14] MEDS ORDERED: VERAPAMIL HCL 2.5 MG/ML 2 ML VIAL ONE (09:06)
[2019-03-14] MEDS ORDERED: FENTANYL CITRATE/PF 100MCG/2 ML INJ ONE (09:06)
[2019-03-14] MEDS ORDERED: LIDOCAINE HCL 2% LOCAL 20 ML VIAL ONE (09:06)
[2019-03-14] MEDS ORDERED: SODIUM CHLORIDE 0.9% 1000ML 1,000 ML ONE (09:07)
[2019-03-14] MEDS ORDERED: IOPAMIDOL 370 MG/ML 200 ML INFUS..BTL INJ ONE (09:07)
--- NOTE | 2019-03-14 09:19 | NUR ---
Consent obtained for heart cath procedure today per MD Morales. Pt aware of procedure. A&O x4. C/o chest pressure, no pain. Resp WNL.
--- NOTE | 2019-03-14 09:32 | NUR ---
Pt taken to labor economics professor via bed with assistance x3. A&O x4, resp WNL.
--- NOTE | 2019-03-14 09:47 | Consultation ---
DATE OF CONSULTATION: 03/14/2019 Cardiology Consultation INDICATION: Coronary artery disease and xbd-MY-bjimvem elevation myocardial infarction. HISTORY OF PRESENT ILLNESS: Mr. Jovel is a 43-year-old gentleman, patient of mine for several years, with advanced coronary artery disease with prior stent placement, who presented to an outside hospital with chest pain and abnormal stress test. His stress test showed some apical ischemia. He was subsequently discharged and now readmitted with ongoing chest pain. New EKG changes consistent with ST-segment depression and awq-WY-dxacnbw elevation infarction. PAST MEDICAL HISTORY: Listed above. SOCIAL HISTORY: The patient does not smoke or drink. MEDICATIONS: Reviewed. REVIEW OF SYSTEMS: Negative except as dictated in the history of present illness. PHYSICAL EXAMINATION: VITAL SIGNS: Afebrile, heart rate is 67, blood pressure 145/77, and O2 saturation is 99%. CARDIOVASCULAR: Regular rhythm. S4 gallop. Systolic murmur. LUNGS: Clear to auscultation bilaterally. ABDOMEN: Distended. EXTREMITIES: 2+ edema bilaterally. LABORATORY DATA: Cardiac enzymes are negative. Hemoglobin 16. The LDL is 74. Chest x-ray shows fractured ribs. Telemetry shows sinus bradycardia. ASSESSMENT: Ott-OI-hommapp elevation myocardial infarction. RECOMMENDATIONS: Mr. Jovel is being scheduled for coronary angiography due to new ST-segment changes on his EKG as well as abnormal stress test with apical ischemia. Risks, benefits, and alternatives of the procedure were discussed with the patient. He is agreeable for the same. I thank Dr. Astudillo for this consultation. MD BRANDEE Reynoso/JOE /[id number]
[2019-03-14] MEDS ORDERED: BIVALRIUDIN 250 MG/VIAL VIAL IV ONE (10:08)
[2019-03-14] MEDS ORDERED: SODIUM CHLORIDE 0.9% 50ML 50 ML ONE (10:09)
[2019-03-14] MEDS ORDERED: TICAGRELOR 90 MG TABLET ONE (10:21)
[2019-03-14] MEDS ORDERED: ASPIRIN 325 MG TAB ONE (10:22)
--- NOTE | 2019-03-14 10:53 | Operative Report ---
DATE OF PROCEDURE: 03/14/2019 SURGEON: Riley Morales MD INDICATION: Jio-QD-shhufid elevation myocardial infarction. PROCEDURES PERFORMED: 1. Left heart catheterization, selective coronary angiography, left ventriculography. 2. PTCA and stent placement in the proximal and mid left anterior descending artery. 3. Deployment of right wrist TR band. COMPLICATIONS: None. RECOMMENDATIONS: Medical therapy including dual antiplatelet therapy for life. DESCRIPTION OF PROCEDURE: Access obtained in the right radial artery. A 5-Icelandic sheath was placed. Angiomax was used for anticoagulation. The left main was widely patent. Left anterior descending artery, proximal 80% at the bifurcation of a large diagonal artery. Multiple stents in the mid and distal left anterior descending artery, had diffuse 20% in-stent restenosis. Circumflex had mild disease. Right coronary artery, proximal stent was widely patent. Right posterior descending artery, stented, 20% in-stent restenosis, distal to the stent 80% stenosis 2 mm vessel. LV ejection fraction 60%. LV end-diastolic pressure of 10. No gradient across the aortic valve on pullback. A decision was made to intervene on the left anterior descending artery. The left main was cannulated using an EBU 3.5, 5-Icelandic guiding catheter. A short wire was advanced across the lesion for support. Primary stent 3.0 x 22 mm Resolute Ventress wax deployed at 16 atmospheres. Excellent end result, less than 10% residual stenosis, ALEJANDRINA-3 flow, no complications. Right wrist TR band applied. The patient was observed in the hospital overnight. MD BRANDEE Reynoso/BRITTNYL /[id number]
--- NOTE | 2019-03-14 11:30 | NUR ---
1130am Received pt in Rm #9. Identiferx2 .Report form Elizabeth REAGAN .LAD fix x1 [facility], Dr. Morales via. Rt arm TR band approach. Back to baseline. Respiration shallow and regular 100% .RA Left ac iv, w/o s/s infiltration infusing at 75cchr. Rt Tr band with Normal neuro vascular function.No oozing or hematoma.Will resume TR band air removal at 1230. Abdomen soft and non tender Denies necessity to defecate or urinate.Bilateral PPx4 PT/Dp. Attempted dc planning no family at bedside did give copies to pt of stent card and diagram. No gross issues pain pallor pressure or dysrhythmia. 1230 (14ccof air to TR band )Positive neuro vascular function. No oozing or bleeding. (-2cc) Positive 12cc. 1245 TR band stable No issues with normal neuro vascular function. NO oozing or bleeding. (-2cc)Positive 10cc. 1300pm Tr band air removal continues with normal neuro vascular function. No oozing or bleeding(-2cc)Positive 8cc. 1315pm TR band off stable site, No gross issues pain pallor pressure or dysrhythmia.NORMAL neuro vascular function. 1330p Report to Liliam REAGAN ,Site stable. NO oozing at site and sterile 2x2/Tegaderm with Coban and splint in place. Transported to floor care per bed and report to tele room. TEZ Madison received in room and aware of c/o complaint tongue sore RN will report to Astudillo service.NO s/s redness Chest or back w/o redness Pt states only has sensitivity of Codeine with Nausea voiced. Hand off completed bed in low position and call light at beside aware of importance to call for help to get up. ds/rn
--- NOTE | 2019-03-14 12:59 | NUR ---
DISCUSSED IN BARRIER ROUNDS, DR AGARWAL CONSULTED, HAVING RIGHT AND LEFT HEART CATH
--- NOTE | 2019-03-14 13:45 | NUR ---
Visit made by the Spiritual Care Department Pastoral Visitor, Michelle Fagan. Pt out of room and no family at bedside. A card was left at the bedside to indicate a missed visit from a member of the Spiritual Care team and to inform the pt and family of the availability of a Grain Grader 24 hours a day/7 days a week. A monorail operator will follow up as able. AGATA WILHELM Grain Grader Spiritual Care Department O: [phone] Pager: [phone] ([phone] number calling from)
[2019-03-14] MEDS: SODIUM CHLORIDE 0.9% 1000ML 1,000 ML IV SCH ×2 (14:27→18:26)
[2019-03-14 14:35] LABS: CREATINE KINASE MB 1.2 ng/mL (0-5.0)
[2019-03-14] MEDS: INSULIN LISPRO 100 UNIT/1 ML 3ML VIAL SQ SCH ×2 (15:20→20:43)
[2019-03-14] MEDS ORDERED: DIPHENHYDRAMINE HCL 25 MG CAP PO PRN (17:00)
[2019-03-14] MEDS ORDERED: RANOLAZINE 1000 MG PO SCH (17:00)
[2019-03-14] MEDS: METFORMIN HCL 500 MG TAB CR PO SCH (17:01)
[2019-03-14] MEDS: RANOLAZINE 500 MG TABSR PO SCH (17:01)
--- NOTE | 2019-03-14 19:00 | NUR ---
Report and walking rounds completed. Patient in bed. Splint in place, no bleeding noted. No issues or concerns. Call light within reach. Will continue to monitor.
[2019-03-14] MEDS ORDERED: TRESIBA 10 UNIT SUBD SCH (21:00)
[2019-03-14] MEDS ORDERED: ATORVASTATIN 20 MG TAB PO SCH (21:00)
[2019-03-15] VITALS: BP 133/79
[2019-03-15 04:00] VITALS: BP 124/65
[2019-03-15] MEDS: SODIUM CHLORIDE 0.9% 1000ML 1,000 ML IV SCH (06:00)
--- NOTE | 2019-03-15 06:00 | NUR ---
Patient in bed resting. No issues or concerns. Call light remains in reach. Will continue to monitor
[2019-03-15 08:27] VITALS: BP 121/85
[2019-03-15] MEDS ORDERED: ISOSORBIDE 60 MG PO SCH (09:00)
[2019-03-15] MEDS ORDERED: ATORVASTATIN 20 MG TAB PO SCH (09:00)
[2019-03-15] MEDS ORDERED: FUROSEMIDE 40 MG TAB PO SCH (09:00)
[2019-03-15] MEDS ORDERED: PANTOPRAZOLE SOD 40 MG TABEC PO SCH ×2 (09:00)
[2019-03-15] MEDS: METFORMIN HCL 500 MG TAB CR PO SCH (09:00)
[2019-03-15] MEDS ORDERED: ISOSORBIDE MONONITRATE 30 MG TAB CR PO SCH (09:00)
[2019-03-15] MEDS ORDERED: METOPROLOL SUCCINATE 50 MG TAB XL PO SCH (09:00)
[2019-03-15] MEDS ORDERED: CLOPIDOGREL BISULFATE 75 MG TAB PO SCH (09:00)
[2019-03-15] MEDS ORDERED: ASPIRIN 325 MG TAB PO SCH (09:00)
[2019-03-15] MEDS ORDERED: NICOTINE 14 MG/EA PATCH TOP SCH (09:00)
[2019-03-15] MEDS ORDERED: BUPROPION HCL SR 150 MG TAB PO SCH (09:00)
[2019-03-15 09:25] VITALS: BP 121/85
[2019-03-15] MEDS: RANOLAZINE 500 MG TABSR PO SCH (09:25)
[2019-03-15] MEDS: INSULIN LISPRO 100 UNIT/1 ML 3ML VIAL SQ SCH (09:25)
--- NOTE | 2019-03-15 11:17 | Progress Note ---
DATE: Cardiology Progress Note SUBJECTIVE: The patient is feeling well. Denies any chest pain, shortness of breath. OBJECTIVE: VITAL SIGNS: Temperature 97.4, heart rate is 70, respirations are 20, blood pressure is 121/85, ox saturation 97% on room air. GENERAL: Well appearing, well built, no apparent distress. CARDIOVASCULAR: Regular rate and rhythm. LUNGS: Clear to auscultation. ABDOMEN: Soft, nontender, nondistended. EXTREMITIES: No clubbing, cyanosis, or edema. Right wrist is free of hematoma. LABORATORY DATA: Reviewed. Glucose 137. Troponins negative. TELEMETRY: Monitoring revealed normal sinus rhythm. IMPRESSION: 1. Coronary artery disease, status post percutaneous coronary intervention. 2. Angina. 3. Hypertension. 4. Hyperlipidemia. RECOMMENDATIONS: Continue current cardiovascular medications including statin and dual antiplatelet therapy. The patient may be discharged from a cardiovascular standpoint with outpatient followup. DO PANCHO Mathis/JOE /[id number]
[2019-03-15 12:16] VITALS: BP 121/80
--- NOTE | 2019-03-15 14:08 | NUR ---
patient alert and oriented, discharge instructions given at this time, patient verbalized understanding. IV discontinued, catheter in tact and small dressing applied. patient refused wheelchair assistance and will be escorted to personal auto for patient to return home.
--- NOTE | 2019-04-18 13:20 | Discharge Summary ---
CHIEF COMPLAINT: Chest discomfort. FINAL DIAGNOSES: Coronary artery disease, diabetes type 2, stent placement. DISPOSITION: Home. HOSPITAL COURSE: A 43-year-old male known history of coronary artery disease, hyperlipidemia, smoker. Admitted from the ER with complaints of mid chest discomfort associated with shortness of breath, diaphoresis and nausea. The patient was evaluated in the emergency room, admitted to this facility for evaluation of the chest pain, rule out cardiac ischemia. We will be requesting a Cardiology followup. On his admission, he was being seen by Dr. Morales, his strategic consultant. The patient is a known individual with advanced coronary artery disease with history of stent placement. Has been having chest pain. Has had an abnormal stress test, which showed some apical ischemia. He was discharged and readmitted for ongoing chest pain. The new EKG findings were consistent with ST-segment depression and a non ST-segment elevated infarct and with his review of assessment was a non ST-segment elevation MN. Discussions were made with the family for intervention. The patient is scheduled for coronary angiography due to new findings on the EKG as well as abnormal stress test. Willing to proceed. Procedure will be scheduled. The patient was taken to the operative suite 03/14/[address] Morales. Indication was a non ST-segment elevated MN. PROCEDURES: 1. Left heart catheterization, selective coronary angiography, left ventriculography. 2. PTCA and stent placement in the proximal and mid left anterior descending artery. There were no complications. RECOMMENDATIONS: The patient will be on dual anti-platelet therapy for a while. The procedure found the left anterior descending artery to have approximately 80% at the bifurcation of the large diagonal artery. There were multiple stents in the mid and distal left anterior descending artery and diffuse 20% in-stent restenosis, right posterior descending artery stent to 20% in-stent restenosis distal to the stent, 80% stenosis, 2 mm vessel. Decision was made to intervene to the left anterior descending artery. The end result was less than 10% residual stenosis and ALEJANDRINA-3 flow was noted. There were no complications. The patient returned to recovery room in good condition. He will remain in the hospital for observation overnight. Returned to recovery room in good condition. He was in IMCU overnight for observation following his stent placement, resting comfortably, was on a regular diet, was in no acute distress, was having no new complaints. The lab studies remaining stable. He was responding well to his medication profile and the patient was cleared for discharge and was released on 03/15/2019 in stable condition. IMAGING: Chest shows suspected fracture of the left 7th and possibly 8th rib with associated pleural thickening. No pneumothorax. No acute pulmonary process. LABORATORY STUDIES: Shows a CBC which is unremarkable. Chemistry panel was conducted. Initial results shows electrolytes to be stable. Kidney function stable. Glucose stable. Followup chemistries were close to watching the blood sugars. They were remaining stable. The cardiac enzymes were stable. Blood sugar was as high as 201, final study 137. The patient tolerated care quite well during his short stay in the facility and he was able to be discharged in good condition. He will be discharged home. He will continue on his cardiac diet while at home. No equipments or supplies were necessary. No drain or Martin was needed. Activity level as directed by me as well as by Dr. Morales. The patient will be following up back with Dr. Morales as directed. We will be continuing on aspirin 325 p.o. daily, atorvastatin calcium 40 mg p.o. daily, Wellbutrin SR 150 one tablet daily, Plavix 75 mg daily, furosemide 40 mg daily, NovoLog sliding scale coverage as directed, Prevacid 30 mg p.o. daily, metformin 500 mg p.o. b.i.d., metoprolol succinate 100 mg p.o. daily, isosorbide 60 mg p.o. daily, Ranexa 1000 mg p.o. b.i.d., Tresiba FlexTouch 10 units subcu h.s. For any new further complaints or questions, he will be contacting PCP. Dictated by KENNETH Yates Roque Astudillo MD CC/MODL /[id number]
== END 2019-03-15 14:08 | disposition home or self-care (01) ==
LOC: ER 21:41 → ERHOLD 03-14 01:16 → IMCU 03-14 01:49
DX: I21.4 Non-ST elevation (NSTEMI) myocardial infarction (principal); I25.119 Atherosclerotic heart disease of native coronary artery with unspecified angina pectoris; R07.9 Chest pain, unspecified; T82.855A Stenosis of coronary artery stent, initial encounter; E78.5 Hyperlipidemia, unspecified; F17.210 Nicotine dependence, cigarettes, uncomplicated; Z95.5 Presence of coronary angioplasty implant and graft; I10 Essential (primary) hypertension
CPT/HCPCS: 36415 ×3; 71046; 80053; 80061; 82550; 82553; 82948 ×2; 83880; 84484 ×2; 85025; 85379; 92928; 93005; 93458; 96372; 99284; C1769 ×2; C1874; C1887; G0378 ×2; J0583; J2001; J2250; J7030 ×2; Q9967; S0164; J3010

== ENCOUNTER 2022-04-07 11:49 | Observation (INO) | payer OTHER ==
[2022-04-02 15:29] LABS: BASOPHILS % 0.5 % (0.0-1.0); EOSINOPHILS # (AUTO) 0.2 (0.0-0.4); EOSINOPHILS % 1.8 % (0.0-6.0); HEMATOCRIT 45.3 % (38.2-49.6); HEMOGLOBIN 15.1 g/dL (14.0-18.0); LYMPHOCYTES # (AUTO) 2.4 (1.0-3.2); LYMPHOCYTES % 27.7 % (18.0-39.1); MEAN CORPUSCULAR HEMOGLOBIN 30.2 pg (28-32); MEAN CORPUSCULAR HGB CONC 33.3 g/dL (31-35); MEAN CORPUSCULAR VOLUME 90.6 fL (81-99); MONOCYTES # (AUTO) 0.6 (0.2-0.8); MONOCYTES % 7.3 % (4.4-11.3); NEUTROPHILS # (AUTO) 5.3 (2.1-6.9); PLATELET COUNT 169 x10e3/uL (140-360); RED CELL DISTRIBUTION WIDTH 13.2 % (11.7-14.4)
[2022-04-02 15:47] LABS: ALANINE AMINOTRANSFERASE 62 IU/L (0-55); ALBUMIN 3.6 g/dL (3.5-5.0); ALBUMIN/GLOBULIN RATIO 0.9 (0.8-2.0); ALKALINE PHOSPHATASE 62 IU/L (40-150); ANION GAP 14.4 mmol/L (8-16); BLOOD UREA NITROGEN 14 mg/dL (7-26); BUN/CREATININE RATIO 16 (6-25); CALCIUM 9.1 mg/dL (8.4-10.2); CARBON DIOXIDE 30 mmol/L (22-29); CHLORIDE 101 mmol/L (98-107); CREATININE, SERUM 0.89 mg/dL (0.72-1.25); GLUCOSE 232 mg/dL (74-118); POTASSIUM 4.4 mmol/L (3.5-5.1); SODIUM 141 mmol/L (136-145)
[2022-04-07] VITALS (16 sets, daily range): BP systolic 107–125; BP diastolic 69–83
[~2022-04-07] VITALS: Ht 177.8 cm; Wt 120.2 kg
[~2022-04-07 11:49] MED LIST changes: +ASPIRIN325 MG PO; +LASIX40 MG PO; +METFORMIN HCL500 M2 PO; +NOVOLOG100 UNIT/1 SUBD; +PREVACID15 MG PO; +TRESIBA SUBD; +WELLBUTRIN SR150 MG PO
[2022-04-07] MEDS ORDERED: DIPHENHYDRAMINE HCL 25 MG CAP ONE (12:38)
[2022-04-07] MEDS ORDERED: ALPRAZOLAM 0.5 MG TAB ONE (12:38)
[2022-04-07] MEDS ORDERED: SODIUM CHLORIDE 0.9% 1000ML 1,000 ML ONE (12:38)
[2022-04-07] MEDS ORDERED: HUMALOG100 UNIT/1 (13:06)
[2022-04-07] MEDS ORDERED: OZEMPIC0.25 MG/0. SC (13:06)
[2022-04-07] MEDS ORDERED: LISINOPRIL5 MG PO (13:06)
[2022-04-07] MEDS ORDERED: VERAPAMIL HCL 2.5 MG/ML 2 ML VIAL ONE (15:35)
[2022-04-07] MEDS ORDERED: HEPARIN SOD/SOD CHLORIDE 2,000 ML ONE (15:36)
[2022-04-07] MEDS ORDERED: IOPAMIDOL 370 MG/ML 100 ML INFUS..BTL INJ ONE ×2 (15:36→16:10)
[2022-04-07] MEDS ORDERED: LIDOCAINE HCL 2% LOCAL 20 ML VIAL ONE (15:36)
[2022-04-07] MEDS ORDERED: MIDAZOLAM HCL 2 MG/2 ML VIAL ONE ×2 (15:37→15:59)
[2022-04-07] MEDS ORDERED: FENTANYL CITRATE/PF 100MCG/2 ML INJ ONE (15:37)
[2022-04-07] MEDS ORDERED: BIVALRIUDIN 250 MG/VIAL VIAL IV ONE (16:07)
[2022-04-07] MEDS ORDERED: ASPIRIN 325 MG TAB ONE (16:17)
[2022-04-07] MEDS ORDERED: PRASUGREL 10 MG TAB ONE (16:18)
[2022-04-07] MEDS ORDERED: Morphine 2mg Syringe 2 MG/ML SYR IV PRN (16:30)
[2022-04-07] MEDS: SODIUM CHLORIDE 0.9% 1000ML 1,000 ML IV SCH (16:30)
[2022-04-07] MEDS ORDERED: ACETAMINOPHEN 325 MG TAB PO PRN (16:30)
[2022-04-07] MEDS: INSULIN LISPRO 100 UNIT/1 ML 3ML VIAL SQ SCH ×2 (16:30→21:31)
[2022-04-07] MEDS ORDERED: DEXTROSE 50% SYRINGE 50 ML IV PRN (16:30)
[2022-04-07] MEDS ORDERED: ONDANSETRON HCL INJ 2MG/ML 2ML 2 MG/ML VIAL IV PRN (16:30)
[2022-04-07] MEDS ORDERED: ZOLPIDEM TARTRATE 5 MG TAB PO PRN (16:30)
[2022-04-07] MEDS ORDERED: METFORMIN HCL 500 MG TAB CR PO SCH (17:00)
[2022-04-07] MEDS ORDERED: RANOLAZINE 500 MG TABSR PO SCH (17:00)
[2022-04-07] MEDS ORDERED: LISINOPRIL 2.5 MG TAB PO SCH (17:00)
[2022-04-07] MEDS ORDERED: RANOLAZINE 1000 MG PO SCH (17:00)
[2022-04-08] VITALS: BP 109/66
[2022-04-08] MEDS: SODIUM CHLORIDE 0.9% 1000ML 1,000 ML IV SCH (03:15)
[2022-04-08 04:00] VITALS: BP 111/80
[2022-04-08] MEDS ORDERED: PANTOPRAZOLE SOD 40 MG TABEC PO SCH (07:30)
[2022-04-08 07:39] VITALS: BP 130/85
[2022-04-08 08:00] VITALS: BP 130/85
[2022-04-08] MEDS: INSULIN LISPRO 100 UNIT/1 ML 3ML VIAL SQ SCH (08:27)
[2022-04-08] MEDS ORDERED: ATORVASTATIN 40 MG TAB PO SCH (09:00)
[2022-04-08] MEDS ORDERED: CLOPIDOGREL BISULFATE 75 MG TAB PO SCH (09:00)
[2022-04-08] MEDS ORDERED: ASPIRIN 325 MG TAB PO SCH (09:00)
[2022-04-08] MEDS ORDERED: METOPROLOL SUCCINATE 50 MG TAB XL PO SCH (09:00)
[2022-04-08] MEDS ORDERED: ISOSORBIDE MONONITRATE 30 MG TAB CR PO SCH (09:00)
[2022-04-08] MEDS ORDERED: FUROSEMIDE 40 MG TAB PO SCH (09:00)
[2022-04-08] MEDS ORDERED: BUPROPION HCL SR 150 MG TAB PO SCH (09:00)
[2022-04-08] MEDS ORDERED: ISOSORBIDE 60 MG PO SCH (09:00)
== END 2022-04-08 10:01 | disposition home or self-care (01) ==
LOC: CATH LAB 11:49 → INTOOBSV 16:31 → MED/SURG3 16:31
PROVIDERS: ADMIT Internal Medicine Interventional Cardiology; ATTEND Internal Medicine Interventional Cardiology
DX: I25.119 Atherosclerotic heart disease of native coronary artery with unspecified angina pectoris (principal); Z79.82 Long term (current) use of aspirin; Z79.84 Long term (current) use of oral hypoglycemic drugs; Z88.5 Allergy status to narcotic agent; Z01.812 Encounter for preprocedural laboratory examination; Z20.822 Contact with and (suspected) exposure to COVID-19
CPT/HCPCS: 0223U; 36415 ×3; 76937; 80053; 82948 ×2; 85025; 92928; 93458; C1874; C1887; C1894; G0378 ×2; J0583; J2001; J2250; J3010; J7030 ×2; Q9967; S0164; 99152; 99153

== ENCOUNTER 2022-04-11 11:42 | Inpatient (IN) | payer OTHER ==
[~2022-04-11] VITALS: Ht 177.8 cm; Wt 120.2 kg
[~2022-04-11 11:42] MED LIST changes: +HUMALOG100 UNIT/1; +LISINOPRIL5 MG PO; +OZEMPIC0.25 MG/0. SC
[2022-04-11 12:06] LABS: BASOPHILS # (AUTO) 0.1 (0.0-0.1); BASOPHILS % 0.7 % (0.0-1.0); EOSINOPHILS # (AUTO) 0.1 (0.0-0.4); EOSINOPHILS % 1.4 % (0.0-6.0); HEMOGLOBIN 15.1 g/dL (14.0-18.0); LYMPHOCYTES # (AUTO) 2.3 (1.0-3.2); LYMPHOCYTES % 33.3 % (18.0-39.1); MEAN CORPUSCULAR HEMOGLOBIN 29.8 pg (28-32); MEAN CORPUSCULAR HGB CONC 32.8 g/dL (31-35); MEAN CORPUSCULAR VOLUME 90.7 fL (81-99); MONOCYTES # (AUTO) 0.6 (0.2-0.8); MONOCYTES % 9.2 % (4.4-11.3); NEUTROPHILS # (AUTO) 3.8 (2.1-6.9); PLATELET COUNT 171 x10e3/uL (140-360); RED BLOOD COUNT 5.07 x10e6/uL (4.3-5.7); RED CELL DISTRIBUTION WIDTH 13.2 % (11.7-14.4)
[2022-04-11 12:22] LABS: ALBUMIN 3.8 g/dL (3.5-5.0); ALBUMIN/GLOBULIN RATIO 0.9 (0.8-2.0); ANION GAP 17.3 mmol/L (8-16); CALCIUM 8.7 mg/dL (8.4-10.2); CREATININE, SERUM 0.99 mg/dL (0.72-1.25); POTASSIUM 4.3 mmol/L (3.5-5.1)
[2022-04-11] MEDS ORDERED: ASPIRIN 81 MG CHEW TAB PO ONE (14:00)
[2022-04-11] MEDS ORDERED: ONDANSETRON HCL INJ 2MG/ML 2ML 2 MG/ML VIAL IV PRN (14:00)
[2022-04-11] MEDS ORDERED: NITROGLYCERIN 0.4 MG SUBL SL PRN ×2 (14:00→16:30)
[2022-04-11] MEDS ORDERED: Morphine 4mg INJECTION 4 MG/ML INJ IV PRN (14:00)
[2022-04-11] MEDS ORDERED: ENOXAPARIN SODIUM INJ 100 MG/ML SYR SC ONE (14:30)
[2022-04-11] MEDS ORDERED: ALBUTEROL/IPRATROPIUM 3 ML NEB NEB PRN (15:15)
[2022-04-11] MEDS ORDERED: SIMETHICONE 80 MG CHEW PO PRN (15:15)
[2022-04-11] MEDS ORDERED: POTASSIUM CHLORIDE 20 MEQ TAB CR PO PRN (15:15)
[2022-04-11] MEDS ORDERED: ACETAMINOPHEN 325 MG TAB PO PRN (15:15)
[2022-04-11] MEDS ORDERED: DEXTROSE 50% SYRINGE 50 ML IV PRN ×2 (15:15)
[2022-04-11] MEDS ORDERED: MELATONIN 5 MG TABLET PO PRN (15:15)
[2022-04-11] MEDS ORDERED: DOCUSATE SODIUM 100 MG CAP PO PRN (15:15)
[2022-04-11] MEDS ORDERED: HYDRALAZINE HCL 20 MG/ML VIAL IV PRN (15:15)
[2022-04-11] MEDS ORDERED: LIDOCAINE 4% PATCH TP PRN (15:15)
[2022-04-11] MEDS ORDERED: BENZONATATE 100 MG CAP PO PRN (15:15)
[2022-04-11] MEDS ORDERED: CHLORASEPTIC SPRAY 177 ML BTL MM PRN (15:15)
[2022-04-11] MEDS: INSULIN LISPRO 100 UNIT/1 ML 3ML VIAL SQ SCH ×2 (15:46→21:30)
[2022-04-11] MEDS: ENOXAPARIN SOD INJ 120 MG/0.8 ML SYR SC SCH (16:15)
[2022-04-11] MEDS ORDERED: ENOXAPARIN SOD INJ 40 MG/0.4 ML SYR SC SCH (17:00)
[2022-04-11 17:44] VITALS: BP 142/94
[2022-04-11] MEDS ORDERED: OZEMPIC0.25 MG/0. SC (18:29)
[2022-04-11] MEDS ORDERED: LEVOTHYROXINE50 MCG PO (18:30)
[2022-04-11 18:34] VITALS: BP 142/94
[2022-04-11 21:00] VITALS: BP 142/94
[2022-04-11] MEDS: ATORVASTATIN 20 MG TAB PO SCH (21:00)
[2022-04-12] VITALS (8 sets, daily range): BP systolic 105–138; BP diastolic 71–99
[2022-04-12] MEDS: ENOXAPARIN SOD INJ 120 MG/0.8 ML SYR SC SCH ×2 (06:08→16:03)
[2022-04-12 06:28] LABS: BASOPHILS % 0.6 % (0.0-1.0); EOSINOPHILS # (AUTO) 0.2 (0.0-0.4); EOSINOPHILS % 2.6 % (0.0-6.0); HEMATOCRIT 43.9 % (38.2-49.6); HEMOGLOBIN 14.5 g/dL (14.0-18.0); LYMPHOCYTES # (AUTO) 2.5 (1.0-3.2); LYMPHOCYTES % 34.8 % (18.0-39.1); MEAN CORPUSCULAR VOLUME 90.9 fL (81-99); MONOCYTES # (AUTO) 0.8 (0.2-0.8); MONOCYTES % 10.6 % (4.4-11.3); NEUTROPHILS # (AUTO) 3.6 (2.1-6.9); NEUTROPHILS % 50.8 % (38.7-80.0); PLATELET COUNT 157 x10e3/uL (140-360); RED BLOOD COUNT 4.83 x10e6/uL (4.3-5.7); RED CELL DISTRIBUTION WIDTH 13.2 % (11.7-14.4)
[2022-04-12 07:26] LABS: ANION GAP 14.7 mmol/L (8-16); CALCIUM 8.9 mg/dL (8.4-10.2); CHOL/HDL RATIO 5.4 (3.9-4.7); CREATININE, SERUM 0.79 mg/dL (0.72-1.25); MAGNESIUM 2.1 MG/DL (1.3-2.1); POTASSIUM 3.7 mmol/L (3.5-5.1)
[2022-04-12] MEDS: INSULIN LISPRO 100 UNIT/1 ML 3ML VIAL SQ SCH ×4 (08:00→22:15)
[2022-04-12] MEDS: PANTOPRAZOLE SOD 40 MG TABEC PO SCH (08:18)
[2022-04-12] MEDS: CLOPIDOGREL BISULFATE 75 MG TAB PO SCH (09:39)
[2022-04-12] MEDS: BUPROPION HCL 150 MG TABCR PO SCH (09:40)
[2022-04-12] MEDS: METOPROLOL SUCCINATE 50 MG TAB XL PO SCH (09:40)
[2022-04-12] MEDS: ASPIRIN 81 MG ENTERIC COATED PO SCH (09:40)
[2022-04-12] MEDS: LISINOPRIL 2.5 MG TAB PO SCH ×2 (09:40→16:03)
[2022-04-12] MEDS: FUROSEMIDE 40 MG TAB PO SCH (09:41)
[2022-04-12] MEDS: ISOSORBIDE MONONITRATE 30 MG TAB CR PO SCH (09:41)
[2022-04-12] MEDS: RANOLAZINE 500 MG TABSR PO SCH ×2 (09:41→16:07)
[2022-04-12] MEDS: LEVOTHYROXINE SODIUM 25 MCG TABLET PO SCH (10:00)
[2022-04-12] MEDS: ATORVASTATIN 20 MG TAB PO SCH (22:15)
[2022-04-13] VITALS (18 sets, daily range): BP systolic 106–140; BP diastolic 55–98
[2022-04-13] MEDS: LEVOTHYROXINE SODIUM 25 MCG TABLET PO SCH (05:03)
[2022-04-13 05:59] LABS: BASOPHILS % 0.5 % (0.0-1.0); EOSINOPHILS # (AUTO) 0.2 (0.0-0.4); HEMATOCRIT 47.3 % (38.2-49.6); HEMOGLOBIN 15.6 g/dL (14.0-18.0); LYMPHOCYTES # (AUTO) 2.5 (1.0-3.2); LYMPHOCYTES % 33.1 % (18.0-39.1); MEAN CORPUSCULAR HEMOGLOBIN 30.2 pg (28-32); MEAN CORPUSCULAR VOLUME 91.7 fL (81-99); MONOCYTES # (AUTO) 0.6 (0.2-0.8); MONOCYTES % 8.4 % (4.4-11.3); NEUTROPHILS # (AUTO) 4.3 (2.1-6.9); NEUTROPHILS % 55.5 % (38.7-80.0); PLATELET COUNT 185 x10e3/uL (140-360); RED BLOOD COUNT 5.16 x10e6/uL (4.3-5.7); RED CELL DISTRIBUTION WIDTH 13.2 % (11.7-14.4)
[2022-04-13 06:26] LABS: CALCIUM 9.2 mg/dL (8.4-10.2); CREATININE, SERUM 0.79 mg/dL (0.72-1.25)
[2022-04-13] MEDS: PANTOPRAZOLE SOD 40 MG TABEC PO SCH (07:30)
[2022-04-13] MEDS: INSULIN LISPRO 100 UNIT/1 ML 3ML VIAL SQ SCH ×4 (07:30→21:00)
[2022-04-13] MEDS: ASPIRIN 81 MG ENTERIC COATED PO SCH (08:34)
[2022-04-13] MEDS: ISOSORBIDE MONONITRATE 30 MG TAB CR PO SCH (08:34)
[2022-04-13] MEDS: RANOLAZINE 500 MG TABSR PO SCH ×2 (08:35→17:07)
[2022-04-13] MEDS: FUROSEMIDE 40 MG TAB PO SCH (08:35)
[2022-04-13] MEDS: CLOPIDOGREL BISULFATE 75 MG TAB PO SCH (08:35)
[2022-04-13] MEDS: LISINOPRIL 2.5 MG TAB PO SCH ×2 (08:35→17:07)
[2022-04-13] MEDS: BUPROPION HCL 150 MG TABCR PO SCH (09:00)
[2022-04-13] MEDS: METOPROLOL SUCCINATE 50 MG TAB XL PO SCH (09:00)
[2022-04-13] MEDS ORDERED: HEPARIN SOD/SOD CHLORIDE 2,000 ML ONE (09:41)
[2022-04-13] MEDS ORDERED: HEPARIN SOD (PORCINE) 1000 UNIT/ML 30ML ONE (09:41)
[2022-04-13] MEDS ORDERED: IOPAMIDOL 370 MG/ML 100 ML INFUS..BTL INJ ONE (09:42)
[2022-04-13] MEDS ORDERED: SODIUM CHLORIDE 0.9% 1000ML 1,000 ML ONE (09:42)
[2022-04-13] MEDS ORDERED: NITROGLYCERIN/D5W 200 MCG/ML 250 ML ONE (09:42)
[2022-04-13] MEDS ORDERED: LIDOCAINE HCL 1% LOCAL INJ 20 ML VIAL ONE (09:43)
[2022-04-13] MEDS ORDERED: VERAPAMIL HCL 2.5 MG/ML 2 ML VIAL ONE (10:37)
[2022-04-13] MEDS ORDERED: MIDAZOLAM HCL 2 MG/2 ML VIAL ONE (10:39)
[2022-04-13] MEDS ORDERED: FENTANYL CITRATE/PF 100MCG/2 ML INJ ONE (10:39)
[2022-04-13] MEDS ORDERED: ASPIRIN 325 MG TAB ONE (11:27)
[2022-04-13] MEDS ORDERED: CLOPIDOGREL BISULFATE 75 MG TAB ONE (11:27)
[2022-04-13] MEDS: ATORVASTATIN 20 MG TAB PO SCH (21:00)
[2022-04-14] VITALS: BP 106/78
[2022-04-14 04:00] VITALS: BP 131/88
[2022-04-14] MEDS: LEVOTHYROXINE SODIUM 25 MCG TABLET PO SCH (06:18)
[2022-04-14 07:58] VITALS: BP 140/89
[2022-04-14] MEDS: PANTOPRAZOLE SOD 40 MG TABEC PO SCH (08:36)
[2022-04-14] MEDS: ASPIRIN 81 MG ENTERIC COATED PO SCH (08:37)
[2022-04-14] MEDS: ISOSORBIDE MONONITRATE 30 MG TAB CR PO SCH (08:37)
[2022-04-14] MEDS: CLOPIDOGREL BISULFATE 75 MG TAB PO SCH (08:38)
[2022-04-14] MEDS: RANOLAZINE 500 MG TABSR PO SCH (08:38)
[2022-04-14] MEDS: FUROSEMIDE 40 MG TAB PO SCH (08:38)
[2022-04-14] MEDS: BUPROPION HCL 150 MG TABCR PO SCH (08:39)
[2022-04-14] MEDS: METOPROLOL SUCCINATE 50 MG TAB XL PO SCH (08:39)
[2022-04-14] MEDS: LISINOPRIL 2.5 MG TAB PO SCH (08:40)
[2022-04-14] MEDS ORDERED: ONDANSETRON HCL 4 MG ORAL DISINTEGRATING TAB PO PRN (12:00)
[2022-04-14 12:50] VITALS: BP 116/82
[2022-04-14] MEDS: INSULIN LISPRO 100 UNIT/1 ML 3ML VIAL SQ SCH ×2 (13:05→13:18)
[2022-04-14 14:30] VITALS: BP 116/82
[2022-04-14 15:54] VITALS: BP 111/73
[2022-04-14] MEDS ORDERED: ATORVASTATIN 40 MG TAB PO SCH (21:00)
== END 2022-04-14 16:40 | disposition home or self-care (01) | DRG 247 ==
LOC: ER 11:45 → ERHOLD 13:59 → MED/SURG2 17:37 → OBSVTOIN 04-12 11:26
PROVIDERS: ADMIT Internal Medicine; ATTEND Internal Medicine
PROC: 027034Z Dilation of Coronary Artery, One Artery with Drug-eluting Intraluminal Device, Percutaneous Approach (ICD-10-PCS; principal; 2022-04-13)
PROC: 4A023N7 Measurement of Cardiac Sampling and Pressure, Left Heart, Percutaneous Approach (ICD-10-PCS; 2022-04-13)
PROC: B2101ZZ Fluoroscopy of Single Coronary Artery using Low Osmolar Contrast (ICD-10-PCS; 2022-04-13)
DX: I25.110 Atherosclerotic heart disease of native coronary artery with unstable angina pectoris (principal); Z20.822 Contact with and (suspected) exposure to COVID-19; E78.5 Hyperlipidemia, unspecified; E11.69 Type 2 diabetes mellitus with other specified complication; Z68.38 Body mass index [BMI] 38.0-38.9, adult; Z88.5 Allergy status to narcotic agent; F32.A Depression, unspecified; E66.01 Morbid (severe) obesity due to excess calories
CPT/HCPCS: 36415; 71045; 76937; 80048; 80053; 80061; 82948; 83036; 83735; 83880; 84484; 85025; 92920; 92928; 93005; 94799; 96372; 99152; 99153; 99284; C1725; C1874; C1887; C1894; G0378; J1644; J1650; J2001; J2250; J3010; J7030; Q9967